=== PATIENT | female | born 1970 | race Caucasian/White ===

== ENCOUNTER → 2017-06-24 08:15 | Outpatient (POV) | payer BC, SELFPAY | PROVIDERS: Visit Provider Dermatology | DX: Z00.00 Encounter for general adult medical examination without abnormal findings (principal) ==

== ENCOUNTER → 2018-08-30 08:18 | Outpatient (POV) | payer OTHER, SELFPAY | PROVIDERS: Visit Provider Dermatology | DX: Z00.00 Encounter for general adult medical examination without abnormal findings (principal) ==

== ENCOUNTER → 2018-11-18 14:35 | Outpatient (CLI) | payer BC, SELFPAY ==
[2018-11-18 16:22] VITALS: BMI 26.9
== END ==
PROVIDERS: PCP Nurse Practitioner Family; Visit Provider Nurse Practitioner Family
DX: E11.40 Type 2 diabetes mellitus with diabetic neuropathy, unspecified (principal)
CPT/HCPCS: 97802

== ENCOUNTER 2019-02-10 08:00 | Outpatient (RCR) | payer BC, SELFPAY ==
--- NOTE | 2019-01-25 16:04 | HMH.OTOPEV ---
OT Inpatient Evaluation Rehab OT Outpatient Eval Start: 01/25/19 15:46 Freq: Status: Active Protocol: Document 01/25/19 15:46 RMARSHALL (Rec: 01/25/19 16:04 RMARSHALL [id number]) Electronically Signed By Madiha López OT 01/25/19 15:46 Outpatient Therapy Subjective History Subjective History Pt is a 48 year old female who reports to therapy for initial evaluation to bilateral thumbs. Pt has been having pain in both thumbs for ~2 months. Pt started a new exercise program at the beginning of November and began having pain immediately after. Pt explains her right thumb is the most painful (dominant side). She is also having clicking/catching at the right IP joint (possible trigger finger). Pt demonstrates with slight decreased AROM/strength at both thumbs. Pt will continue to be seen twice a week in order to address all deficits. 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 Type Ache,Throb,Sharp Symptoms Relieved By Nothing Symptoms Aggravated By Physical Activity,Lifting Prior Functional Limitations None Current Functional Limitations Reaching,Lifting,Housework, Dressing,Desk Work/Reading, Driving,Standing,Recreation Activity,Stairs Symptom Description Constant but Variable Level of pain today (0-10) 5 Pain scale - at its best (0-10) 7 Pain scale - at its worst (0-10) 3 Wrist/Hand Eval Thumb Range of Motion Left Thumb Metacarpophalangeal Flexion Active 70 degrees Range of Motion (degrees) Thumb Metacarpophalangeal Extension 0 degrees Active Range of Motion (degrees) Thumb Palmar Abduction (Carpometacarpal 70 degrees Flex) Active Range (degrees) Thumb Interphalangeal Flexion Active 65 degrees Range of Motion (degrees) Thumb Interphalangeal Extension Active 0 degrees Range of Motion (degrees) Right Thumb Metacarpophalangeal Flexion Active 60 degrees Range of Motion (degrees) Thumb Metacarpophalangeal Extension 0 degrees Active Range of Motion (degrees) Thumb Palmar Abduction (Carpometacarpal 35 degrees Flex) Active Range (degrees) Thumb Interphalangeal Flexion Active 55 degrees Ra
== END 2019-02-10 08:05 | disposition home or self-care (01) ==
LOC: OT 08:00
PROVIDERS: PCP Nurse Practitioner Family; Visit Provider Nurse Practitioner Family
DX: M79.644 Pain in right finger(s) (principal); M79.645 Pain in left finger(s)
CPT/HCPCS: 97033; 97035; 97140; 97166

== ENCOUNTER → 2020-10-03 07:47 | Outpatient (CLI) | payer BC, SELFPAY ==
[2020-10-03 08:17] LABS: Basophils # 0.1 K/mm3 (0-0.2); Basophils % 0.8 % (0.1-2.0); Eosinophils # 0.2 K/mm3 (0.0-0.4); Eosinophils % 3.1 % (0.1-12.0); Hematocrit 48.1 % (37.0-47.0); Lymphocytes # 1.8 K/mm3 (0.7-4.5); Lymphocytes % 25.3 % (10-50); Mean Corpuscular HGB Conc 33.4 g/dL (31.8-35.4); Mean Corpuscular Hemoglobin 28.9 pg (27.0-31.2); Mean Corpuscular Volume 86.5 fl (81-99); Mean Platelet Volume 8.4 fl (7.4-10.4); Monocytes # 0.5 K/mm3 (0.1-1.0); Monocytes % 7.2 % (1.7-9.3); Neutrophils # 4.6 K/mm3 (1.8-7.8); Neutrophils % 63.6 % (37.0-80.0); Platelet Count 222 K/mm3 (142-424); Red Blood Count 5.56 M/mm3 (4.20-5.40); Red Cell Distribution Width 13.3 % (11.5-17.5); White Blood Count 7.2 K/mm3 (4.8-10.8)
[2020-10-03 08:41] LABS: Alanine Aminotransferase 13 U/L (12-78); Albumin Level 4.8 g/dl (3.5-5.0); Albumin/Globulin Ratio 1.7 (1.1-1.8); Alkaline Phosphatase 75 U/L (38-126); Anion Gap 15.8 mEq/L (5-15); Aspartate Amino Transferase 17 U/L (14-36); Bilirubin,Total 1.1 mg/dl (0.2-1.3); Blood Urea Nitrogen 17 mg/dl (7-17); Calcium 9.7 mg/dl (8.4-10.2); Carbon Dioxide 23 mmol/L (22.0-30.0); Chloride 106 mmol/L (98-107); Chol/HDL Ratio 4.6 (1-3.5); Cholesterol 184 mg/dl (140-200); Estimated Glomerular Filt Rate 77 ml/min (>60); GFR (African American) 93 ML/MIN (>60); Globulin 2.8 g/dL (1.3-3.2); Glucose 202 mg/dl (74-100); HDL Cholesterol 40 mg/dl (40-60); Hemoglobin A1C 7.9 % (4.0-6.0); Potassium 4.8 mmoL/L (3.5-5.1); Sodium 140 mmol/L (136-145); Total Protein,Serum 7.6 g/dl (6.3-8.2); Triglycerides 134 mg/dl (30-150); VLDL Cholesterol 27 mg/dL (0-40)
[2020-10-03 08:51] LABS: Direct LDL Cholesterol 112.06 mg/dL (100-129)
[2020-10-03 09:29] LABS: Vitamin B12 324 pg/mL (239-931)
== END ==
PROVIDERS: Visit Provider Nurse Practitioner Family
DX: E11.40 Type 2 diabetes mellitus with diabetic neuropathy, unspecified (principal); E53.8 Deficiency of other specified B group vitamins
CPT/HCPCS: 36415; 80053; 80061; 82607; 83036; 85025

== ENCOUNTER 2021-05-17 09:06 | Emergency (ER) | payer BC, SELFPAY ==
[2021-05-17 09:10] VITALS: BP 141/91; PULSE 100; RESP 20; TEMP 36.8; O2SAT 98; BMI 26.6
--- NOTE | 2021-05-17 09:29 | HMH.EDUTC ---
[facility] [place] Disposition Clinical Impression: Sinusitis Qualifiers: Sinusitis location: unspecified location Chronicity: unspecified Qualified Code(s): J32.9 - Chronic sinusitis, unspecified Disposition: Home, Self-Care Condition on Discharge: Good Instructions: Sinusitis Additional Instructions: *Monitor Temp, Over the counter Motrin or Tylenol as directed/as needed Tylenol every 4 hours and Motrin every 6 hours (as long as your family doctor has told you that you can take it) for fever or pain. and straight to ER if unable to lower temp less than 101.0 after medication given *Warm salt water gargles may help to soothe the throat *Throat Lozenges *Warm fluids like tea with honey may help to soothe the throat *Sleep elevated *Humidifier/Vaporizer *Flonase 2 sprays in each nostril daily but be aware that it may take 2-3 days before you notice improvement *Bromfed may cause drowsiness. Know how it effects you (your child) before driving, caring for small child, or sending your child to school. Not other antihistamines/allergy medications while taking bromfed Take medication as prescribed Follow up IMMEDIATELY for new or worsening symptoms or no Noticeable improvement over the next 48-72 hours. 911 for difficulty breathing or swallowing Prescriptions: Amoxicillin/Potassium Clav [Augmentin 875-125 Tablet] 1 tab PO Q12H 7 Days #14 tab Transmission Status: Received by [id number] Brompheniramine/Pseudoephed/Dm [Bromfed Dm Cough Syrup] 5 - 10 ml PO Q46H PRN #250 ml PRN Reason: Cough Transmission Status: Received by [id number] Fluticasone Propionate [Flonase 50mcg nasal spray 16gm] 1 spr NS BID #1 each Transmission Status: Received by [id number] Referrals: Austin Cherry MD [Primary Care Provider] - Medical Decision Making - Nando Inquiry Pt receiving controlled substance: No Nando was queried for this patient: No Vital Signs: 05/17/21 09:10 05/17/21 09:38 Temperature 98.3 F 98.3 F Temperature Source Oral Pulse Rate 100 H Pulse Rate [Left Brachial] 100 H Respiratory Rate 20 20 Blood Pressure 141/91 H Blood Pressure [Left Arm] 141/91 H Blood Pressure Mean [Left Arm] 107 Blood Pressure Source [Left Arm] Automatic Cuff Blood Pressure Position [Left Arm] Sitting 02 Sat by Pulse Oximetry 98 Oxygen Delivery Method Room Air [facility] [place] HPI - General Stated complaint: no taste/smell, drainage, adb pain Time Seen by Provider: 05/17/21 09:29 Mode of Arrival: Ambulatory Source of Information: Patient Limitations: No Limitations Description of Symptoms (Recalled from Triage Doc. by RN): PATIENT C/O SINUS DRAINAGE AND COUGH SINCE WEDNESDAY HEENT Symptoms (Recalled from RN notes): Yes Resp Symptoms (Recalled from RN notes): Yes Skin Symptoms (Recalled from RN notes): No MS Symptoms (Recalled from RN notes): No Functional Status (Recalled from RN notes): WNL - History of Present Illness Provider Complaint: Patient states that she started with sinus congestion and pressure about a week ago States that it has continued to get worse States that she feels like it is drianing in the back of her throat and making her cough States that today she was still having pressure behind her eyes so she came in - Related Data Home Medications Medication Instructions Recorded Confirmed Dapagliflozin/Saxagliptin HCl 1 each PO DAILY 03/23/19 05/17/21 [Qtern 5 mg-5 mg Tablet] Previous Rx's Medication Instructions Recorded Amoxicillin/Potassium Clav 1 tab PO Q12H 7 Days #14 tab 05/17/21 [Augmentin 875-125 Tablet] Brompheniramine/Pseudoephed/Dm 5 - 10 ml PO Q46H PRN #250 ml 05/17/21 [Bromfed Dm Cough Syrup] Fluticasone Propionate [Flonase 1 spr NS BID #1 each 05/17/21 50mcg nasal spray 16gm] Allergies Allergy/AdvReac Type Severity Reaction Status Date / Time Sulfa (Sulfonamide Allergy Intermediate Hives Verified 01/07/21 13:01 Antibiotics) - Worker's Comp Is
[2021-05-17 09:38] VITALS: BP 141/91; PULSE 100; RESP 20; TEMP 36.8; O2SAT 98
== END 2021-05-17 09:50 | disposition home or self-care (01) ==
PROVIDERS: Emergency Provider Nurse Practitioner; PCP Internal Medicine Adolescent Medicine
DX: J32.9 Chronic sinusitis, unspecified (principal); E11.9 Type 2 diabetes mellitus without complications; Z88.2 Allergy status to sulfonamides
CPT/HCPCS: 99202; G0463

== ENCOUNTER → 2021-05-23 11:59 | Outpatient (CLI) | payer BC, SELFPAY | PROVIDERS: PCP Internal Medicine Adolescent Medicine; Visit Provider Nurse Practitioner | DX: U07.1 COVID-19 (principal) | CPT/HCPCS: C9803; U0003; U0005 ==

== ENCOUNTER → 2021-07-03 10:46 | Outpatient (CLI) | payer BC, SELFPAY ==
--- NOTE | 2021-07-03 10:55 | MM_ITS ---
PROCEDURE INFORMATION: Exam: MG Bilateral Screening 3D Mammography Exam date and time: 07/03/2021 10:55 AM Age: 50 years old Clinical indication: Encounter for screening mammogram for malignant neoplasm of breast TECHNIQUE: Imaging protocol: Screening tomosynthesis and 2D mammography including computer-aided detection (CAD) when performed. COMPARISON: MG DMSB DIG MAMM-SCREEN DILLON 01/22/2016 5:01 PM FINDINGS: MAMMOGRAPHY: Breast composition: The breast tissue is composed of scattered areas of fibroglandular density. Mass: 0.6 cm mass in the anterior third of the left lower outer quadrant Architectural distortion: None. Calcifications: No suspicious calcifications. Asymmetric density: None. Skin thickening: None. Axillary adenopathy: None. IMPRESSION: Patient to be recalled for left breast ultrasound for further evaluation of a probably benign left breast mass. ASSESSMENT: BI-RADS Category 0: Incomplete- Need Additional Imaging Evaluation and/or Prior Mammograms for Comparison
== END ==
PROVIDERS: PCP Internal Medicine Adolescent Medicine; Visit Provider Obstetrics & Gynecology
DX: Z12.31 Encounter for screening mammogram for malignant neoplasm of breast (principal)
CPT/HCPCS: 77063; 77067

== ENCOUNTER → 2021-07-15 10:18 | Outpatient (CLI) | payer BC, SELFPAY ==
--- NOTE | 2021-07-15 10:22 | US_ITS ---
PROCEDURE INFORMATION: Exam: US Left Breast, Complete Exam date and time: 07/15/2021 10:22 AM Age: 51 years old Clinical indication: Patient recalled for further evaluation of a left breast mass TECHNIQUE: Imaging protocol: Complete ultrasound of all four quadrants of the Left breast and the retroareolar regions, including ultrasound of the axilla when performed. COMPARISON: MG MM DIG SCREENING MAMM BI W/CAD 07/03/2021 10:56 AM FINDINGS: Breast: Sonographic images of the left breast including the retroareolar region, all 4 quadrants and the axilla do not demonstrate any cystic masses. Corresponding to the mass on mammography is a uniformly hypoechoic well-circumscribed ovoid solid mass in the lower outer quadrant 3 cm from the nipple measuring 0.6 x 0.3 x 0.6 cm in dimension. The finding is likely benign in etiology. No architectural distortion or acoustical shadowing. No skin thickening or axillary adenopathy. IMPRESSION: Probably benign left lower outer quadrant breast mass seen on mammography and sonography. A six-month follow-up diagnostic left mammogram and left breast ultrasound recommended to ensure stability over time unless otherwise clinically indicated. ASSESSMENT: BI-RADS Category 3: Probably benign
== END ==
LOC: RAD 10:18
PROVIDERS: PCP Internal Medicine Adolescent Medicine; Visit Provider Obstetrics & Gynecology
DX: R92.8 Other abnormal and inconclusive findings on diagnostic imaging of breast (principal)
CPT/HCPCS: 76641

== ENCOUNTER → 2021-07-19 09:41 | Outpatient (CLI) | payer BC, SELFPAY ==
[2021-07-19 10:03] LABS: Basophils # 0.1 K/mm3 (0-0.2); Basophils % 1.7 % (0.1-2.0); Eosinophils # 0.2 K/mm3 (0.0-0.4); Eosinophils % 2.7 % (0.1-12.0); Hematocrit 46.4 % (37.0-47.0); Hemoglobin 15.1 g/dL (12.2-16.2); Lymphocytes # 2.1 K/mm3 (0.7-4.5); Lymphocytes % 36.6 % (10-50); Mean Corpuscular HGB Conc 32.5 g/dL (31.8-35.4); Mean Corpuscular Hemoglobin 29.3 pg (27.0-31.2); Mean Platelet Volume 8.4 fl (7.4-10.4); Monocytes # 0.4 K/mm3 (0.1-1.0); Monocytes % 6.2 % (1.7-9.3); Neutrophils % 52.8 % (37.0-80.0); Platelet Count 268 K/mm3 (142-424); Red Blood Count 5.16 M/mm3 (4.20-5.40); Red Cell Distribution Width 13.3 % (11.5-17.5); White Blood Count 5.7 K/mm3 (4.8-10.8)
[2021-07-19 11:02] LABS: Alanine Aminotransferase 27 U/L (12-78); Albumin Level 4.5 g/dl (3.5-5.0); Albumin/Globulin Ratio 1.8 (1.1-1.8); Alkaline Phosphatase 70 U/L (38-126); Anion Gap 12.4 mEq/L (5-15); Aspartate Amino Transferase 31 U/L (14-36); Bilirubin,Total 1.6 mg/dl (0.2-1.3); Blood Urea Nitrogen 16 mg/dl (7-17); Calcium 9.7 mg/dl (8.4-10.2); Carbon Dioxide 28 mmol/L (22.0-30.0); Chloride 100 mmol/L (98-107); Chol/HDL Ratio 4.9 (1-3.5); Cholesterol 195 mg/dl (140-200); Estimated Glomerular Filt Rate 89 ml/min (>60); GFR (African American) 108 ML/MIN (>60); Globulin 2.5 g/dL (1.3-3.2); Glucose 248 mg/dl (74-100); HDL Cholesterol 40 mg/dl (40-60); Potassium 4.4 mmoL/L (3.5-5.1); Sodium 136 mmol/L (136-145); Triglycerides 157 mg/dl (30-150); VLDL Cholesterol 31 mg/dL (0-40)
[2021-07-19 11:13] LABS: Direct LDL Cholesterol 130.41 mg/dL (100-129)
[2021-07-19 11:50] LABS: Vitamin B12 420 pg/mL (239-931)
[2021-07-19 11:52] LABS: Hemoglobin A1C 9.5 % (4.0-6.0)
== END ==
LOC: LAB 09:42
PROVIDERS: PCP Nurse Practitioner Family; Visit Provider Nurse Practitioner Family
DX: E11.40 Type 2 diabetes mellitus with diabetic neuropathy, unspecified (principal); D50.9 Iron deficiency anemia, unspecified; E53.8 Deficiency of other specified B group vitamins; Z79.84 Long term (current) use of oral hypoglycemic drugs
CPT/HCPCS: 36415; 80053; 80061; 82607; 83036; 85025

== ENCOUNTER 2021-08-14 16:30 | Outpatient (RCR) | payer BC, SELFPAY ==
--- NOTE | 2021-07-23 16:58 | HMH.PTOPEV ---
PT Outpatient Evaluation Rehab PT Outpatient Evaluation Start: 07/23/21 16:05 Freq: Status: Active Protocol: Document 07/23/21 16:06 TY (Rec: 07/23/21 16:58 TY [id number]) Electronically Signed By Scot Yang PT 07/23/21 16:06 Outpatient Therapy Subjective History Subjective History This is the initial Physical Therapy evaluation for Virginia Henry. Pt is a 51 y/o female referred to PT for c/o R neck and shoulder pain. Pt reports pain since last summer w/ insidious onset but notes increased pain over last month . Pt states she notices pain w/ using RUE and lifting or pushing. Pt reports pain can vary in intensity and position moving from R upper shoulder blade to anterior shoulder. Chief Complaint Pain,Stiff Symptom Type Ache,Throb,Sharp,Dull,Stabbing Symptoms Relieved By Rest/Positioning,Ice,OTC Meds Symptoms Aggravated By Physical Activity,Lifting Prior Functional Limitations None Current Functional Limitations Lifting,Housework,Sleeping, Recreation Activity Symptom Description Constant but Variable Level of pain today (0-10) 4 Pain scale - at its best (0-10) 1 Pain scale - at its worst (0-10) 7 Cervical Eval Palpation Cervical Muscles L CT Junction,R Upper Trapezius Cervical/Thoracic Palpation Findings Tenderness,Trigger Point, Muscle Guarding Posture Head/C-Spine Posture Sitting Position C-Spine Flattened Head/C-Spine Posture Standing Position C-Spine Flattened Flexibility Deficits Upper Trapezius Muscle Length (R) Mild Tightness Levaetor Scapulae Muscle Length (R) Mild Tightness Scalene Group Muscle Length (R) Mild Tightness MMT Bilateral Deltoid (C5) 5 Normal Biceps Brachii Strength Grade 5 Normal Wrist Extension Strength Grade 4 Good Triceps Brachii Strength Grade 5 Normal Wrist Flexion Strength Grade 4 Good Special Test C-Spine Foraminal Compression (Spurling) Positive Left,Positive Right Test C-Spine Foraminal Distraction Test Negative C-Spine Compression Test Negative Left,Negative Right Shoulder/Elbow Eval Shoulder Objective Measurements Palpation Tenderness tenderness shoulder exam standard right tenderness over the bicipital tendon right shoulder exam standard Shoulder Palpation Findings Tenderness Posture Shoulder Posture Sitting Positio
== END 2021-08-14 16:35 | disposition home or self-care (01) ==
LOC: PT 16:30
PROVIDERS: PCP Internal Medicine Adolescent Medicine; Visit Provider Internal Medicine Adolescent Medicine
DX: M25.511 Pain in right shoulder (principal); G89.29 Other chronic pain
CPT/HCPCS: 20560; 97010; 97012; 97014; 97110; 97163; G0283

== ENCOUNTER → 2021-10-28 07:20 | Outpatient (CLI) | payer BC, SELFPAY ==
[2021-10-28 08:07] LABS: Creatinine,Urine Random 88 mg/dL (Not Estab.)
[2021-10-28 08:09] LABS: Microalbumin < 6.000 mg/L (0-16.7)
[2021-10-28 08:13] LABS: Hemoglobin A1C 7.1 % (4.0-6.0)
[2021-10-28 08:47] LABS: Alanine Aminotransferase 15 U/L (12-78); Albumin Level 4.3 g/dl (3.5-5.0); Albumin/Globulin Ratio 1.8 (1.1-1.8); Alkaline Phosphatase 51 U/L (38-126); Anion Gap 11.2 mEq/L (5-15); Aspartate Amino Transferase 20 U/L (14-36); Bilirubin,Total 1.2 mg/dl (0.2-1.3); Blood Urea Nitrogen 13 mg/dl (7-17); Calcium 9.4 mg/dl (8.4-10.2); Carbon Dioxide 28 mmol/L (22.0-30.0); Chloride 105 mmol/L (98-107); Chol/HDL Ratio 4.3 (1-3.5); Cholesterol 173 mg/dl (140-200); Estimated Glomerular Filt Rate 76 ml/min (>60); GFR (African American) 92 ML/MIN (>60); Globulin 2.4 g/dL (1.3-3.2); Glucose 155 mg/dl (74-100); HDL Cholesterol 40 mg/dl (40-60); Potassium 4.2 mmoL/L (3.5-5.1); Sodium 140 mmol/L (136-145); Total Protein,Serum 6.7 g/dl (6.3-8.2); Triglycerides 122 mg/dl (30-150); VLDL Cholesterol 24 mg/dL (0-40)
[2021-10-28 08:58] LABS: Direct LDL Cholesterol 95.22 mg/dL (100-129)
== END ==
PROVIDERS: Visit Provider Nurse Practitioner Family
DX: E11.40 Type 2 diabetes mellitus with diabetic neuropathy, unspecified (principal); E78.5 Hyperlipidemia, unspecified; R80.9 Proteinuria, unspecified; Z79.84 Long term (current) use of oral hypoglycemic drugs
CPT/HCPCS: 36415; 80053; 80061; 82043; 82570; 83036

== ENCOUNTER → 2022-01-13 12:58 | Outpatient (CLI) | payer BC, SELFPAY ==
--- NOTE | 2022-01-13 13:06 | MM_ITS ---
PROCEDURE INFORMATION: Exam: US Left Breast, Complete MG Left Diagnostic Breast Tomosynthesis Exam date and time: 01/13/2022 1:40 PM Age: 51 years old Clinical indication: Short-term radiographic followup; Left breast; mass TECHNIQUE: Imaging protocol: Complete ultrasound of all four quadrants of the Left breast and the retroareolar regions, including ultrasound of the axilla when performed. Left Diagnostic tomosynthesis and 2D mammography including computer-aided detection (CAD) when performed. Unilateral or bilateral exam. COMPARISON: US BREAST LT COMPLETE 07/15/2021 10:42 AM FINDINGS: MAMMOGRAPHY: The breast tissue is composed of scattered areas of fibroglandular density. There is no stellate mass, architectural distortion or suspicious microcalcifications to suggest malignancy. Stable 0.7 cm mass in the anterior third the left lower outer quadrant No skin thickening or axillary adenopathy. ULTRASOUND: Sonographic images of the left breast including the retroareolar region, all 4 quadrants and the axilla demonstrates a stable hypoechoic ovoid mass in the 4 o'clock axis 3 cm from the nipple measuring 0.7 x 0.3 x 0.8 cm in dimension cm in dimension. This is stable compared to prior sonogram dated 07/15/2021. Cursors were placed over normal fibroglandular structures in the 2 o'clock axis. No architectural distortion or acoustical shadowing. No skin thickening or axillary adenopathy. IMPRESSION: Stable probably benign left anterior 4 o'clock axis mass compared to prior studies dated 07/03 and 07/15/2021. A six-month follow-up diagnostic bilateral mammogram and targeted left breast ultrasound are recommended for continued close surveillance of the left-sided mass as well as part of an annual screening schedule ASSESSMENT: BI-RADS Category 3: Probably benign
== END ==
LOC: RAD 12:58
PROVIDERS: PCP Nurse Practitioner Family; Visit Provider Obstetrics & Gynecology
DX: R92.8 Other abnormal and inconclusive findings on diagnostic imaging of breast (principal)
CPT/HCPCS: 76641; 77061; 77065; G0279

== ENCOUNTER → 2022-03-11 08:13 | Outpatient (CLI) | payer BC, SELFPAY ==
--- NOTE | 2022-03-11 08:21 | XR_ITS ---
FINAL REPORT CLINICAL HISTORY: Rt shoulder pain x yrs, worsened recently. NKT FINDINGS: Right shoulder Three views were obtained. There is no acute fracture or dislocation. There are mild hypertrophic changes of the AC joint. No soft tissue abnormality is identified. IMPRESSION: Mild hypertrophic changes of the AC joint. Reviewed, Interpreted and Dictated by Titi Honeycutt MD Transcribed by Chika Mccain Authenticated and [facility]
== END ==
LOC: RAD 08:15
PROVIDERS: PCP Internal Medicine Adolescent Medicine; Visit Provider Internal Medicine Adolescent Medicine
DX: M25.511 Pain in right shoulder (principal)
CPT/HCPCS: 73030

== ENCOUNTER 2022-03-13 11:00 | Outpatient (RCR) | payer BC, SELFPAY ==
--- NOTE | 2022-02-11 10:59 | HMH.PTOPEV ---
PT Outpatient Evaluation Rehab PT Outpatient Evaluation Start: 02/11/22 10:43 Freq: Status: Active Protocol: Document 02/11/22 10:43 RODNEY (Rec: 02/11/22 10:58 RODNEY [id number]) E-signed By Iglesia Estrada, PT Outpatient Therapy Subjective History Subjective History Pt reports h/o chronic right shoulder pain with most recent exacerbation occurring ~ weeks ago. Pt reports executing overhead tricep extensions while working out and 'felt a pop' in the right shoulder. Pt reports intermittent right shoulder jt line pain since incident, jillian . with any overhead reaching activity. Chief Complaint Pain,Stiff,Paresthesia Symptom Type Ache,Dull,Stabbing Symptoms Relieved By Rest/Positioning,Ice, Prescription Meds Symptoms Aggravated By Physical Activity,Lifting Prior Functional Limitations None Current Functional Limitations Reaching,Lifting,Housework Symptom Description Constant but Variable Level of pain today (0-10) 2 Pain scale - at its best (0-10) 1 Pain scale - at its worst (0-10) 5 Shoulder/Elbow Eval Shoulder Objective Measurements Palpation Tenderness tenderness shoulder exam standard right tenderness over the bicipital tendon right shoulder exam standard Shoulder Palpation Findings Tenderness,Trigger Point Shoulder Palpation Overall Comment 3/4 UT mm, deltoid mm, jt line Posture Shoulder Posture Sitting Position Neutral Shoulder Posture Standing Position Neutral Flexibilty Deficits Upper Trapezius Muscle Length (R) Moderate Tightness Shoulder ROM Right Shoulder Abduction Active Range of 0-100 Motion (degrees) Shoulder Flexion Active Range of Motion 0-130 (degrees) Query Text: Shoulder External Rotation Passive Range 0-78 of Motion (degrees) Shoulder MMT Lower Trapezius Strength Grade 3+ Fair+ Middle Trapezius Strength Grade 4- Good- Rhomboids Strength Grade 4- Good- Shoulder Abduction Strength Grade 4- Good- Shoulder Flexion Strength Grade 4- Good- Infraspinatus/Teres Minor Strength Grade 4- Good- Shoulder External Rotation Strength 4 Good Grade Shoulder Internal Rotation Strength 5 Normal Grade Subscapularis Muscle Grade 3+ Fair+ Supraspinatus Strength Grade 4- Good- Shoulder Special Tests Shoulder Drop Arm Test Negative Right Shoulder Empty Can (Supraspinatus) T
== END 2022-03-13 11:05 | disposition home or self-care (01) ==
LOC: PT 11:00
PROVIDERS: PCP Nurse Practitioner Family; Visit Provider Internal Medicine Adolescent Medicine
DX: M12.811 Other specific arthropathies, not elsewhere classified, right shoulder (principal)
CPT/HCPCS: 20560; 20561; 97014; 97016; 97035; 97110; 97140; 97163; G0283

== ENCOUNTER 2022-04-14 09:24 | Emergency (ER) | payer BC, SELFPAY ==
[2022-04-14 10:58] LABS: Apearance,Urine Cloudy (Clear); Color,Urine Red (Yellow)
[2022-04-14 10:59] LABS: Bilirubin,Urine Negative (Negative); Blood, Urine Trace (Negative); Glucose,Urine (UA) 1000 (Negative); Ketones,Urine TRACE (Negative); Protein,Urine 1+ (Negative); Specific Gravity, Urine 1.025 (1.005-1.030); Urobilinogen,Urine 2 EU/dl (0.2)
[2022-04-14 11:00] VITALS: BP 132/86; PULSE 76; RESP 18; TEMP 36.6; O2SAT 98; BMI 25.7
[2022-04-14 11:00] LABS: UTC Leukocyte Esterase,Urine Negative (Negative); UTC Nitrate,Urine Positive (Negative)
--- NOTE | 2022-04-14 11:01 | EXP.UTC ---
Discharge Plan Disposition Patient Disposition: Home, Self-Care Condition: Good Prescriptions Prescriptions: New cefdinir 300 mg capsule 300 mg PO BID 7 Days Qty: 14 0RF phenazopyridine [Pyridium] 200 mg tablet 200 mg PO Q8H 2 Days Qty: 6 0RF No Action dapagliflozin-saxagliptin 1 EACH tablet 1 each PO DAILY xiwufclywcnprcb-bqcumkwdi-GM 118 ML syrup 5 - 10 ml PO Q46H PRN (Reason: Cough) Qty: 250 0RF fluticasone propionate 120 SPR/BOT bottle 1 spr NS BID Qty: 1 0RF Rx Instructions: one spray in each nostril daily amoxicillin-pot clavulanate 1 EACH tablet 1 tab PO Q12H 7 Days Qty: 14 0RF rosuvastatin 5 mg tablet 5 mg PO DAILY Label Comments: TAKE 1 TABLET BY MOUTH ONCE DAILY Referrals Follow up/Referrals: Austin Cherry MD [Primary Care Provider] - See instructions Activity Restrictions/Add. Instructions Additional Instructions/Restrictions: *Increase fluids. Water not Soda or Tea *Start antibiotic immediately and be sure to take as ordered for the FULL length of time although you should start to see improvement over the next 48 hours *Pyridium as needed Remember this medication will turn your urine . This is normal but it will stain what ever it gets on *You should not use Pyridium for more than 48 hours. If so , follow up with your primary physician to review urine culture and ensure that antibiotic is adequate for infection *Be SURE to follow up anytime for new or worsening symptoms with your family doctor. AND in 48 hours for urine culture results with your family doctor, if you do not have a doctor then you may call back to the [facility] for urine culture results and further treatment. We do recommend that you choose and establish care with a Primary Care Physician. ?AND follow up with them ?in 10-14 days to repeat UA to ensure infection is resolved and blood no longer present *Be sure to let your PCP know that we sent urine cultures from the [facility] so they can follow up to ensure that you area the on the correct antibiotic Call your doctor office and make appointment for 48 hours (2 days from today) ?to follow up and get the results of your urine culture and further treatment Clinical Impressions Clinical Impression: Urinary tract infection Qualifiers: Hematuria presence: with hematuria Instructions Patient Instructions: DI for Urinary Tract Infection (UTI) Discharge ED Provider: Marquita Mg [facility] [place] HPI General Stated complaint: Burning, pain and itching when urination Time Seen by Provider: 04/14/22 11:32 History of Present Illness Provider Complaint: Patient states that she has been having burning, itching and hurts when she urinates for several days States that also she feels like she may have scratched herself while she was wiping Related Data Home Medications Medication Instructions Recorded Confirmed dapagliflozin 5 mg-saxagliptin 5 1 each PO DAILY Diabetes 03/23/19 04/14/22 mg tablet rosuvastatin 5 mg tablet 5 mg PO DAILY Cholesterol 04/14/22 04/14/22 Previous Rx's Medication Instructions Recorded amoxicillin 875 mg-potassium 1 tab PO Q12H 7 days #14 tabs 05/17/21 clavulanate 125 mg tablet coumsogdtbcedcx-pomdsmzzxzuvtqq-BS 5 - 10 ml PO Q46H PRN Cough #250 mL 05/17/21 2 mg-30 mg-10 mg/5 mL oral syrup fluticasone propionate 50 1 spr NS BID #1 ea 05/17/21 mcg/actuation nasal spray,suspension cefdinir 300 mg capsule 300 mg PO BID 7 days #14 caps 04/14/22 phenazopyridine 200 mg tablet 200 mg PO Q8H pain 2 days #6 tabs 04/14/22 (Pyridium) Allergies Allergy/AdvReac Type Severity Reaction Status Date / Time Sulfa (Sulfonamide Allergy Intermediate Hives Verified 04/14/22 11:02 Antibiotics) [facility] Social History Smoking Status: Never smoker alcohol intake: never substance use type: denies use current occupational status: other Travel in the last 8 weeks: None
[2022-04-14 11:36] VITALS: BP 132/86; PULSE 76; RESP 18; TEMP 36.6
== END 2022-04-14 11:39 | disposition home or self-care (01) ==
PROVIDERS: Emergency Provider Nurse Practitioner; PCP Internal Medicine Adolescent Medicine
DX: N39.0 Urinary tract infection, site not specified (principal)
CPT/HCPCS: 81003; 87086; 87088; 87186; 99212; G0463

== ENCOUNTER 2022-06-10 15:40 | Emergency (ER) | payer BC, SELFPAY ==
--- NOTE | 2022-06-10 16:05 | EXP.UTC ---
Discharge Plan Disposition Patient Disposition: Home, Self-Care Condition: Good Prescriptions Prescriptions: New benzonatate [benzonatate] 100 mg capsule 100 mg PO TIDP PRN (Reason: Cough) Qty: 30 0RF oseltamivir [Tamiflu] 75 mg capsule 75 mg PO BID Qty: 10 0RF methylprednisolone 4 mg Tablets,Dose Pack 4 mg PO DIRECTED Qty: 21 0RF No Action dapagliflozin-saxagliptin 1 EACH tablet 1 each PO DAILY mimyokqczxphbmm-cnhvbzuoc-MX 118 ML syrup 5 - 10 ml PO Q46H PRN (Reason: Cough) Qty: 250 0RF fluticasone propionate 120 SPR/BOT bottle 1 spr NS BID Qty: 1 0RF Rx Instructions: one spray in each nostril daily amoxicillin-pot clavulanate 1 EACH tablet 1 tab PO Q12H 7 Days Qty: 14 0RF rosuvastatin 5 mg tablet 5 mg PO DAILY Label Comments: TAKE 1 TABLET BY MOUTH ONCE DAILY cefdinir 300 mg capsule 300 mg PO BID 7 Days Qty: 14 0RF phenazopyridine [Pyridium] 200 mg tablet 200 mg PO Q8H 2 Days Qty: 6 0RF Referrals Follow up/Referrals: Austin Cherry MD [Primary Care Provider] - See instructions Activity Restrictions/Add. Instructions Additional Instructions/Restrictions: Drink plenty of fluids. Take tylenol or ibuprofen for pain or fever. Take the medications as directed. Follow up with your regular doctor. GO TO THE ER FOR ANY WORSENING SYMPTOMS Clinical Impressions Clinical Impression: Acute viral syndrome Stand Alone Forms Stand Alone Forms: Work/School Release Instructions Patient Instructions: DI for Influenza -- Adult, Oseltamivir Discharge ED Provider: Aldo Betancur [facility] General Stated complaint: exposed to flu , weak, nausea Time Seen by Provider: 06/10/22 16:05 History of Present Illness Provider Complaint: She states that for the past 2 days she has had sore throat, chills, body aches and low grade fever. Related Data Home Medications Medication Instructions Recorded Confirmed dapagliflozin 5 mg-saxagliptin 5 1 each PO DAILY Diabetes 03/23/19 04/14/22 mg tablet rosuvastatin 5 mg tablet 5 mg PO DAILY Cholesterol 04/14/22 04/14/22 Previous Rx's Medication Instructions Recorded amoxicillin 875 mg-potassium 1 tab PO Q12H 7 days #14 tabs 05/17/21 clavulanate 125 mg tablet qdqtgduijguxgzq-hyeccdfbkqexpcf-MH 5 - 10 ml PO Q46H PRN Cough #250 mL 05/17/21 2 mg-30 mg-10 mg/5 mL oral syrup fluticasone propionate 50 1 spr NS BID #1 ea 05/17/21 mcg/actuation nasal spray,suspension cefdinir 300 mg capsule 300 mg PO BID 7 days #14 caps 04/14/22 phenazopyridine 200 mg tablet 200 mg PO Q8H pain 2 days #6 tabs 04/14/22 (Pyridium) benzonatate 100 mg capsule 100 mg PO TIDP PRN Cough #30 caps 06/10/22 methylprednisolone 4 mg tablets in 4 mg PO DIRECTED #21 tabs 06/10/22 a dose pack oseltamivir 75 mg capsule (Tamiflu) 75 mg PO BID #10 caps 06/10/22 Allergies Allergy/AdvReac Type Severity Reaction Status Date / Time Sulfa (Sulfonamide Allergy Intermediate Hives Verified 06/10/22 16:10 Antibiotics) [facility] Disclaimer: The information contained in this section may have been updated after the patient was seen, as this information can be updated by other users. Social History Smoking Status: Never smoker alcohol intake: never substance use type: denies use current occupational status: other Travel in the last 8 weeks: None ROS Obtained: Yes All systems reviewed & no additional complaints except as documented Constitutional Constitutional: Reports chills and Reports fever(s) Eyes Eyes: Denies eye discharge ENT Ears, Nose, Mouth, and Throat: Reports as per HPI Cardiovascular Cardiovascular: Denies chest pain Respiratory Respiratory: Denies chest congestion and Reports cough Gastrointestinal Gastrointestingal: Reports nausea; Denies abdominal pain, constipation, cramping, diarrhea or vomiting Musculoskeletal Musculoskeleta
[2022-06-10 16:07] VITALS: BP 133/80; PULSE 103; RESP 18; TEMP 36.9; O2SAT 98; BMI 25.7
[2022-06-10 16:17] LABS: Adenovirus,PCR Not Detected (NotDetected); Bordetella Pertussis Not Detected (NotDetected); Chlamydophila Pneumoniae, PCR Not Detected (NotDetected); Coronavirus 229E Not Detected (NotDetected); Coronavirus NL63 Not Detected (NotDetected); Coronavirus OC43 Not Detected (NotDetected); Coronovirus HKU1,PCR Not Detected (NotDetected); Human Metapneumovirus Not Detected (NotDetected); Influenza A, PCR Not Detected (NotDetected); Influenza AH1, 2009 Not Detected (NotDetected); Influenza AH1, PCR Not Detected (NotDetected); Influenza AH3,PCR Not Detected (NotDetected); Influenza B, PCR Not Detected (NotDetected); Mycoplasma Pneumoniae, PCR Not Detected (NotDetected); Parainfluenza 1, PCR Not Detected (NotDetected); Parainfluenza 2, PCR Not Detected (NotDetected); Parainfluenza 3, PCR Not Detected (NotDetected); Parainfluenza 4, PCR Not Detected (NotDetected); Respiratory Syncytial Virus Not Detected (NotDetected); Rhinovirus/Enterovirus Not Detected (NotDetected)
[2022-06-10 16:47] VITALS: BP 133/80; PULSE 103; RESP 18; TEMP 36.9
[2022-06-11 02:49] LABS: Coronavirus 19, PCR Detected (NotDetected)
== END 2022-06-10 16:50 | disposition home or self-care (01) ==
PROVIDERS: Emergency Provider Nurse Practitioner Family; PCP Internal Medicine Adolescent Medicine
DX: U07.1 COVID-19 (principal)
CPT/HCPCS: 87581; 87632; 87798; 99212; C9803; G0463; U0003; U0005

== ENCOUNTER → 2022-07-17 13:50 | Outpatient (CLI) | payer BC, SELFPAY ==
--- NOTE | 2022-07-17 13:53 | MM_ITS ---
PROCEDURE INFORMATION: Exam: US Left Breast, Complete MG Bilateral Diagnostic Breast Tomosynthesis Exam date and time: 07/17/2022 1:51 PM Age: 52 years old Clinical indication: Six-month follow-up for probably benign left anterior 4 o'clock axis mass from 07/03, 07/15, and 01/13/2022 as well as left screening. No reported family history of breast cancer. TECHNIQUE: Imaging protocol: Complete ultrasound of all four quadrants of the Left breast and the retroareolar regions, including ultrasound of the axilla when performed. Bilateral Diagnostic tomosynthesis and 2D mammography including computer-aided detection (CAD) when performed. Unilateral or bilateral exam. COMPARISON: 1. MG MM DIG MAMM DX UNILAT LT CAD 01/13/2022 1:05 PM 2. MG MM DIG SCREENING MAMM BI W/CAD 07/03/2021 10:56 AM 3. MG DMSB DIG MAMM-SCREEN DILLON 01/22/2016 5:01 PM 4. US BREAST LT COMPLETE 01/13/2022 1:40 PM US BREAST LT COMPLETE 07/15/2021 10:42 AM FINDINGS: MAMMOGRAPHY: Breast composition: There are scattered areas of fibroglandular density. Mass: Similar/less prominent 0.6 cm mass/asymmetry best seen in the MLO projection, along the nipple line, anterior 3rd, MLO frame 19. Architectural distortion: None. Calcifications: No suspicious calcifications. Asymmetric density: None. Skin thickening: None. Axillary adenopathy: None. ULTRASOUND: Left sonography, all 4 quadrants, retroareolar and axilla demonstrate at 4 o'clock 3 cm from the nipple an oval hypoechoic avascular, probably solid, mass measuring 0.7 x 0.7 x 0.3 cm which measured 0.6 x 0.4 x 0.6 cm on 07/15/2021. Sonographically unremarkable left axillary lymph node. IMPRESSION: No significant change in probably benign mammographic and sonographic sonographic mass on the left at 4 o'clock since 07/15/2021, advise continued six-month follow-up sonography, unless otherwise clinically indicated. ASSESSMENT: BI-RADS Category 3: Probably benign
== END ==
LOC: RAD 13:50
PROVIDERS: PCP Internal Medicine Adolescent Medicine; Visit Provider Obstetrics & Gynecology
DX: R92.8 Other abnormal and inconclusive findings on diagnostic imaging of breast (principal)
CPT/HCPCS: 76641; 77062; 77066; G0279

== ENCOUNTER → 2022-08-19 07:51 | Outpatient (CLI) | payer BC, SELFPAY ==
[2022-08-19 08:31] LABS: Basophils # 0.1 K/mm3 (0-0.2); Basophils % 1.2 % (0.1-2.0); Eosinophils # 0.2 K/mm3 (0.0-0.4); Eosinophils % 2.3 % (0.1-12.0); Hematocrit 47.2 % (37.0-47.0); Hemoglobin 15.1 g/dL (12.2-16.2); Lymphocytes # 1.9 K/mm3 (0.7-4.5); Lymphocytes % 25.9 % (10-50); Mean Corpuscular Hemoglobin 28.5 pg (27.0-31.2); Mean Corpuscular Volume 89.2 fl (81-99); Mean Platelet Volume 8.2 fl (7.4-10.4); Monocytes # 0.5 K/mm3 (0.1-1.0); Monocytes % 6.7 % (1.7-9.3); Neutrophils # 4.7 K/mm3 (1.8-7.8); Neutrophils % 63.9 % (37.0-80.0); Platelet Count 254 K/mm3 (142-424); Red Cell Distribution Width 13.2 % (11.5-17.5); White Blood Count 7.3 K/mm3 (4.8-10.8)
[2022-08-19 09:05] LABS: Alanine Aminotransferase 17 U/L (12-78); Albumin Level 4.6 g/dl (3.5-5.0); Albumin/Globulin Ratio 1.7 (1.1-1.8); Alkaline Phosphatase 77 U/L (38-126); Anion Gap 11.4 mEq/L (5-15); Aspartate Amino Transferase 21 U/L (14-36); Bilirubin,Total 1.1 mg/dl (0.2-1.3); Blood Urea Nitrogen 17 mg/dl (7-17); Calcium 9.3 mg/dl (8.4-10.2); Carbon Dioxide 27 mmol/L (22.0-30.0); Chloride 103 mmol/L (98-107); Chol/HDL Ratio 4.2 (1-3.5); Cholesterol 172 mg/dl (140-200); Estimated Glomerular Filt Rate 66 ml/min (>60); GFR (African American) 80 ML/MIN (>60); Globulin 2.7 g/dL (1.3-3.2); Glucose 180 mg/dl (74-100); HDL Cholesterol 41 mg/dl (40-60); Potassium 4.4 mmoL/L (3.5-5.1); Sodium 137 mmol/L (136-145); Total Protein,Serum 7.3 g/dl (6.3-8.2); Triglycerides 119 mg/dl (30-150); VLDL Cholesterol 24 mg/dL (0-40)
[2022-08-19 09:10] LABS: Creatinine,Urine Random 64 mg/dL (Not Estab.)
[2022-08-19 09:16] LABS: Direct LDL Cholesterol 102.01 mg/dL (100-129)
[2022-08-19 09:36] LABS: Microalbumin < 6.000 mg/L (0-16.7)
[2022-08-19 09:54] LABS: Vitamin B12 425 pg/mL (239-931)
[2022-08-19 10:50] LABS: Hemoglobin A1C 8.4 % (4.0-6.0)
== END ==
LOC: LAB 07:52
PROVIDERS: PCP Nurse Practitioner Family; Visit Provider Nurse Practitioner Family
DX: E11.40 Type 2 diabetes mellitus with diabetic neuropathy, unspecified (principal); E78.5 Hyperlipidemia, unspecified; D50.9 Iron deficiency anemia, unspecified; E53.8 Deficiency of other specified B group vitamins
CPT/HCPCS: 36415; 80053; 80061; 82043; 82570; 82607; 83036; 85025

== ENCOUNTER → 2022-09-29 16:48 | Outpatient (CLI) | payer BC, SELFPAY ==
--- NOTE | 2022-09-29 16:54 | XR_ITS ---
PROCEDURE INFORMATION: Exam: XR Bilateral Sacroiliac Joints Exam date and time: 09/29/2022 4:56 PM Age: 52 years old Clinical indication: Other: Sacroiliac inflammation since June 2022, no injury TECHNIQUE: Imaging protocol: XR bilateral XR of the sacroiliac joints. Views: 3 or more views. COMPARISON: No relevant prior studies available. FINDINGS: Bones/joints: There is mild sclerosis along the sacroiliac joints likely sequela of prior sacroiliitis. No visible fracture or dislocation. Soft tissues: Normal. IMPRESSION: 1. There is mild sclerosis along the sacroiliac joints likely sequela of prior sacroiliitis. 2. No visible fracture or dislocation.
== END ==
LOC: RAD 16:49
PROVIDERS: PCP Nurse Practitioner Family; Visit Provider Internal Medicine Adolescent Medicine
DX: M46.1 Sacroiliitis, not elsewhere classified (principal)
CPT/HCPCS: 72202

== ENCOUNTER → 2022-11-26 06:57 | Outpatient (CLI) | payer BC, SELFPAY ==
[2022-11-26 08:12] LABS: Microalbumin/Creatinine Ratio 6.8
[2022-11-26 08:16] LABS: Basophils % 0.6 % (0.1-2.0); Eosinophils # 0.2 K/mm3 (0.0-0.4); Eosinophils % 2.2 % (0.1-12.0); Hematocrit 47.4 % (37.0-47.0); Hemoglobin 15.6 g/dL (12.2-16.2); Mean Corpuscular HGB Conc 32.8 g/dL (31.8-35.4); Mean Corpuscular Hemoglobin 28.7 pg (27.0-31.2); Mean Corpuscular Volume 87.5 fl (81-99); Monocytes # 0.6 K/mm3 (0.1-1.0); Monocytes % 7.9 % (1.7-9.3); Neutrophils # 4.4 K/mm3 (1.8-7.8); Neutrophils % 61.3 % (37.0-80.0); Platelet Count 240 K/mm3 (142-424); Red Blood Count 5.41 M/mm3 (4.20-5.40); Red Cell Distribution Width 12.8 % (11.5-17.5); White Blood Count 7.1 K/mm3 (4.8-10.8)
[2022-11-26 08:20] LABS: Alanine Aminotransferase 18 U/L (12-78); Albumin Level 4.6 g/dl (3.5-5.0); Albumin/Globulin Ratio 1.8 (1.1-1.8); Alkaline Phosphatase 60 U/L (38-126); Anion Gap 14.1 mEq/L (5-15); Aspartate Amino Transferase 22 U/L (14-36); Bilirubin,Total 1.9 mg/dl (0.2-1.3); Blood Urea Nitrogen 16 mg/dl (7-17); Carbon Dioxide 25 mmol/L (22.0-30.0); Chloride 104 mmol/L (98-107); Chol/HDL Ratio 2.4 (1-3.5); Cholesterol 97 mg/dl (140-200); Estimated Glomerular Filt Rate 76 ml/min (>60); GFR (African American) 92 ML/MIN (>60); Globulin 2.6 g/dL (1.3-3.2); Glucose 142 mg/dl (74-100); HDL Cholesterol 41 mg/dl (40-60); Potassium 4.1 mmoL/L (3.5-5.1); Sodium 139 mmol/L (136-145); Total Protein,Serum 7.2 g/dl (6.3-8.2); Triglycerides 105 mg/dl (30-150); VLDL Cholesterol 21 mg/dL (0-40)
[2022-11-26 08:31] LABS: Direct LDL Cholesterol 41.66 mg/dL (100-129)
[2022-11-26 08:38] LABS: Creatinine,Urine Random 129 mg/dL (Not Estab.); Hemoglobin A1C 6.6 % (4.0-6.0)
[2022-11-26 09:11] LABS: Vitamin B12 299 pg/mL (239-931)
[2022-11-27 14:22] LABS: Estradiol 91.4 pg/mL (.); FSH 4.2 mIU/mL (.); LH 10.7 mIU/mL (.)
== END ==
LOC: LAB 06:59
PROVIDERS: Internal Medicine Adolescent Medicine; PCP Nurse Practitioner Family; Visit Provider Nurse Practitioner Family
DX: E11.40 Type 2 diabetes mellitus with diabetic neuropathy, unspecified (principal); N92.6 Irregular menstruation, unspecified; D50.9 Iron deficiency anemia, unspecified; E53.8 Deficiency of other specified B group vitamins; Z79.84 Long term (current) use of oral hypoglycemic drugs
CPT/HCPCS: 36415; 80053; 80061; 82043; 82570; 82607; 82670; 83001; 83002; 83036; 85025

== ENCOUNTER → 2023-01-14 13:56 | Outpatient (CLI) | payer BC, SELFPAY ==
--- NOTE | 2023-01-14 14:00 | MM_ITS ---
PROCEDURE INFORMATION: Exam: US Left Breast, Complete MG Left Diagnostic Breast Tomosynthesis Exam date and time: 01/14/2023 1:52 PM Age: 52 years old Clinical indication: Short-term radiographic followup; Left breast; Abnormal findings on imaging; Right; Additional info: Abnormal mammogram, 6 mos fu TECHNIQUE: Imaging protocol: Complete ultrasound of all four quadrants of the left breast and the retroareolar regions, including ultrasound of the axilla when performed. Left Diagnostic tomosynthesis and 2D mammography including computer-aided detection (CAD) when performed. Unilateral or bilateral exam. COMPARISON: 1. MG MM DIG MAMM BI DX W/CAD 07/17/2022 1:51 PM 2. MG MM DIG MAMM DX UNILAT LT CAD 01/13/2022 1:05 PM 3. MG MM DIG SCREENING MAMM BI W/CAD 07/03/2021 10:56 AM 4. MG DMSB DIG MAMM-SCREEN DILLON 01/22/2016 5:01 PM FINDINGS: MAMMOGRAPHY: There are scattered areas of fibroglandular density. Stable benign-appearing subcentimeter nodules are present in the anterior lower left breast. No new mass, architectural distortion, or suspicious calcifications have developed to suggest malignancy. No axillary adenopathy. ULTRASOUND: Hypoechoic horizontal circumscribed 0.8 x 0.3 by 0.7 cm mass along the 4 o'clock axis 3 cm from the nipple measures 0.8 x 0.3 x 0.7 cm on 01/13/2022 Minimally complicated cystic structures measure 0.5 cm along the 12 o'clock axis left breast 5 cm from the nipple and 0.6 cm along the 12 o'clock axis 3 cm from the nipple IMPRESSION: Continued sonographic surveillance is recommended to assure stability of a 0.8 cm left 4 o'clock probably benign mass and several complicated cystic structures along the 12 o'clock left breast with targeted ultrasound in 6 months, at which time the patient will be due for bilateral annual screening mammogram ASSESSMENT: BI-RADS category 3: Probably benign
== END ==
LOC: RAD 13:56
PROVIDERS: PCP Nurse Practitioner Family; Visit Provider Obstetrics & Gynecology
DX: R92.8 Other abnormal and inconclusive findings on diagnostic imaging of breast (principal); N63.20 Unspecified lump in the left breast, unspecified quadrant
CPT/HCPCS: 76641; 77061; 77065; G0279

== ENCOUNTER → 2023-03-05 07:30 | Outpatient (CLI) | payer BC, SELFPAY ==
[2023-03-05 07:50] LABS: Basophils # 0.1 K/mm3 (0-0.2); Eosinophils # 0.1 K/mm3 (0.0-0.4); Eosinophils % 1.4 % (0.1-12.0); Hematocrit 46.4 % (37.0-47.0); Hemoglobin 14.7 g/dL (12.2-16.2); Lymphocytes % 37.3 % (10-50); Mean Corpuscular HGB Conc 31.8 g/dL (31.8-35.4); Mean Corpuscular Hemoglobin 28.7 pg (27.0-31.2); Mean Corpuscular Volume 90.3 fl (81-99); Mean Platelet Volume 8.9 fl (7.4-10.4); Monocytes # 0.4 K/mm3 (0.1-1.0); Monocytes % 7.8 % (1.7-9.3); Neutrophils # 2.9 K/mm3 (1.8-7.8); Neutrophils % 52.4 % (37.0-80.0); Platelet Count 240 K/mm3 (142-424); Red Blood Count 5.13 M/mm3 (4.20-5.40); Red Cell Distribution Width 13.2 % (11.5-17.5); White Blood Count 5.5 K/mm3 (4.8-10.8)
[2023-03-05 08:33] LABS: Hemoglobin A1C 5.8 % (4.0-6.0)
[2023-03-05 08:49] LABS: Alanine Aminotransferase 15 U/L (12-78); Albumin Level 4.3 g/dl (3.5-5.0); Albumin/Globulin Ratio 1.9 (1.1-1.8); Alkaline Phosphatase 57 U/L (38-126); Anion Gap 12.9 mEq/L (5-15); Aspartate Amino Transferase 20 U/L (14-36); Blood Urea Nitrogen 11 mg/dl (7-17); Calcium 8.9 mg/dl (8.4-10.2); Carbon Dioxide 26 mmol/L (22.0-30.0); Chloride 105 mmol/L (98-107); Estimated Glomerular Filt Rate 76 ml/min (>60); GFR (African American) 92 ML/MIN (>60); Globulin 2.3 g/dL (1.3-3.2); Glucose 103 mg/dl (74-100); Potassium 3.9 mmoL/L (3.5-5.1); Sodium 140 mmol/L (136-145); Total Protein,Serum 6.6 g/dl (6.3-8.2)
== END ==
PROVIDERS: PCP Nurse Practitioner Family; Visit Provider Nurse Practitioner Family
DX: E11.40 Type 2 diabetes mellitus with diabetic neuropathy, unspecified (principal); D50.9 Iron deficiency anemia, unspecified
CPT/HCPCS: 36415; 80053; 83036; 85025

== ENCOUNTER 2023-07-19 12:48 | Outpatient (CLI) | payer BC, SELFPAY ==
--- NOTE | 2023-07-19 13:17 | MM_ITS ---
PROCEDURE INFORMATION: Exam: US Left Breast, Complete MG Bilateral Screening 3D Mammography Exam date and time: 07/19/2023 1:04 PM Age: 53 years old Clinical indication: Screening examination and continued six-month follow-up for probably benign sonographic findings on the left at 4 and 12 o'clock since 07/15/2021. TECHNIQUE: Imaging protocol: Complete ultrasound of all four quadrants of the left breast and the retroareolar regions, including ultrasound of the axilla when performed. Bilateral Screening tomosynthesis and 2D mammography including computer-aided detection (CAD) when performed. A triangular marker is placed on left - at area of dent concern, as per technologist notes. COMPARISON: 1. MG MM DIG MAMM DX UNILAT LT CAD 01/14/2023 1:52 PM 2. MG MM DIG MAMM BI DX W/CAD 07/17/2022 1:51 PM 3. MG MM DIG MAMM DX UNILAT LT CAD 01/13/2022 1:05 PM 4. MG MM DIG SCREENING MAMM BI W/CAD 07/03/2021 10:56 AM FINDINGS: MAMMOGRAPHY: Breast composition: There are scattered areas of fibroglandular density. Mass: Similar 0.6 cm oval mass/asymmetry best seen in the outer lower left breast, anterior 3rd, CC frame 17 and MLO projection, frame 17, no significant change since 07/03/2021. A triangular marker is in the region of the mammographic mass, Architectural distortion: None. Calcifications: No suspicious calcifications. Asymmetric density: None. Skin thickening: None. Axillary adenopathy: None. ULTRASOUND: Left sonography, all 4 quadrants, retroareolar and axilla. At 12 o'clock 5 cm from the nipple, probable complicated avascular cyst measuring 0.3 x 0.3 x 0.3 cm which measured 0.5 x 0.2 x 0.4 cm on 01/14/2023. At 12 o'clock 3 cm from the nipple, probable complicated cyst measuring 0.2 x 0.1 x 0.2 cm, which measured 0.3 x 0.6 x 0.2 cm on 08/17/2022. At 2 o'clock 5 cm from the nipple, probable complicated avascular cyst measuring 0.6 x 0.3 x 0.6 cm which measured 0.6 x 0.3 x 0.7 cm on 01/13/2022. At 4 o'clock 3 cm from the nipple, oval hypoechoic avascular mass or masses with two measurements: measuring 0.6 x 0.4 cm and measuring 1.1 x 0.5 cm - which measured 0.8 x 0.3 cm and 1.1 x 0.5 cm on 01/13/2022. Sonographically unremarkable axillary lymph node. IMPRESSION: See comments No significant change in probably benign mammographic and sonographic masses on the left since June 2022, continued six-month follow-up left diagnostic mammogram and left sonography recommended unless otherwise clinically indicated. Please also note that patient reports a dent in the skin is in the region of the mammographic mass, correlate clinically. Further evaluation of a palpable abnormality should be based on clinical grounds regardless of radiographic findings or lack thereof. ASSESSMENT: BI-RADS Category 3: Probably benign
== END 2023-07-19 23:59 ==
LOC: RAD 12:49
PROVIDERS: PCP Nurse Practitioner Family; Visit Provider Obstetrics & Gynecology
DX: Z12.31 Encounter for screening mammogram for malignant neoplasm of breast (principal)
CPT/HCPCS: 76641; 77063; 77067

== ENCOUNTER 2023-09-03 07:17 | Outpatient (CLI) | payer BC, SELFPAY ==
[2023-09-03 07:53] LABS: Basophils # 0.1 K/mm3 (0-0.2); Basophils % 0.9 % (0.1-2.0); Eosinophils # 0.1 K/mm3 (0.0-0.4); Eosinophils % 1.6 % (0.1-12.0); Hematocrit 46.4 % (37.0-47.0); Lymphocytes # 2.1 K/mm3 (0.7-4.5); Lymphocytes % 34.5 % (10-50); Mean Corpuscular HGB Conc 32.3 g/dL (31.8-35.4); Mean Corpuscular Hemoglobin 30.2 pg (27.0-31.2); Mean Corpuscular Volume 93.5 fl (81-99); Mean Platelet Volume 8.7 fl (7.4-10.4); Monocytes # 0.4 K/mm3 (0.1-1.0); Monocytes % 7.1 % (1.7-9.3); Neutrophils # 3.4 K/mm3 (1.8-7.8); Neutrophils % 55.9 % (37.0-80.0); Platelet Count 228 K/mm3 (142-424); Red Blood Count 4.97 M/mm3 (4.20-5.40); Red Cell Distribution Width 12.9 % (11.5-17.5); White Blood Count 6.1 K/mm3 (4.8-10.8)
[2023-09-03 08:10] LABS: Alanine Aminotransferase 11 U/L (12-78); Albumin Level 4.3 g/dl (3.5-5.0); Alkaline Phosphatase 54 U/L (38-126); Aspartate Amino Transferase 19 U/L (14-36); Bilirubin,Total 1.5 mg/dl (0.2-1.3); Blood Urea Nitrogen 12 mg/dl (7-17); Calcium 9.2 mg/dl (8.4-10.2); Carbon Dioxide 29 mmol/L (22.0-30.0); Chloride 106 mmol/L (98-107); Chol/HDL Ratio 3.6 (1-3.5); Cholesterol 157 mg/dl (140-200); Estimated Glomerular Filt Rate 76 ml/min (>60); GFR (African American) 92 ML/MIN (>60); Globulin 2.2 g/dL (1.3-3.2); Glucose 104 mg/dl (74-100); HDL Cholesterol 44 mg/dl (40-60); Sodium 141 mmol/L (136-145); Total Protein,Serum 6.5 g/dl (6.3-8.2); Triglycerides 95 mg/dl (30-150); VLDL Cholesterol 19 mg/dL (0-40)
[2023-09-03 08:21] LABS: Direct LDL Cholesterol 81.04 mg/dL (100-129)
[2023-09-03 08:43] LABS: Hemoglobin A1C 5.6 % (4.0-6.0)
[2023-09-03 09:00] LABS: Vitamin B12 270 pg/mL (239-931)
== END 2023-09-03 23:59 ==
LOC: LAB 07:18
PROVIDERS: PCP Nurse Practitioner Family; Visit Provider Nurse Practitioner Family
DX: E11.40 Type 2 diabetes mellitus with diabetic neuropathy, unspecified (principal); D50.9 Iron deficiency anemia, unspecified; E53.8 Deficiency of other specified B group vitamins; E78.5 Hyperlipidemia, unspecified
CPT/HCPCS: 36415; 80053; 80061; 82607; 83036; 85025

== ENCOUNTER 2024-01-18 13:54 | Outpatient (CLI) | payer BC, SELFPAY ==
--- NOTE | 2024-01-18 13:59 | MM_ITS ---
PROCEDURE INFORMATION: Exam: US Left Breast, Complete MG Left Diagnostic Breast Tomosynthesis Exam date and time: 01/18/2024 2:20 PM Age: 53 years old Clinical indication: Short-term radiographic followup; Left breast; masses TECHNIQUE: Imaging protocol: Complete ultrasound of all four quadrants of the left breast and the retroareolar regions, including ultrasound of the axilla when performed. Left Diagnostic tomosynthesis and 2D mammography including computer-aided detection (CAD) when performed. Unilateral or bilateral exam. COMPARISON: US BREAST LT COMPLETE 07/19/2023 1:25 PM FINDINGS: MAMMOGRAPHY: Breast composition: There are scattered areas of fibroglandular density. Breast mammogram findings: There is no stellate mass, architectural distortion or suspicious microcalcifications to suggest malignancy. No focal asymmetries are identified on the current mammogram. No skin thickening or axillary adenopathy. ULTRASOUND: Breast ultrasound findings: Sonographic images of the left breast including the retroareolar region, all 4 quadrants and the axilla do not demonstrate any new solid or cystic masses. Stable hypoechoic mass versus focal fat lobule in the left 4 o'clock axis 3 cm from the nipple measuring 1.1 x 0.5 x 0.7 cm.Minimal subcentimeter cystic change is present in the left 2 o'clock axis. No architectural distortion or acoustical shadowing. No skin thickening or axillary adenopathy. IMPRESSION: Stable hypoechoic solid mass versus focal fat lobule in the left 4 o'clock axis compared to prior sonogram dated 07/19/2023. A six-month follow-up targeted left breast ultrasound is recommended for continued close surveillance. Annual bilateral mammographic screening is also recommended at that time ASSESSMENT: BI-RADS Category 3: Probably benign.
== END 2024-01-18 23:59 | disposition home or self-care (01) ==
LOC: RAD 13:55
PROVIDERS: PCP Internal Medicine Adolescent Medicine; Visit Provider Obstetrics & Gynecology
DX: R92.8 Other abnormal and inconclusive findings on diagnostic imaging of breast (principal)
CPT/HCPCS: 76641; 77061; 77065; G0279

== ENCOUNTER 2024-03-08 07:12 | Outpatient (CLI) | payer BC, SELFPAY ==
[2024-03-08 07:41] LABS: Basophils # 0.1 K/mm3 (0-0.2); Basophils % 0.8 % (0.1-2.0); Eosinophils # 0.1 K/mm3 (0.0-0.4); Eosinophils % 1.1 % (0.1-12.0); Hematocrit 44.7 % (37.0-47.0); Hemoglobin 14.3 g/dL (12.2-16.2); Lymphocytes # 2.3 K/mm3 (0.7-4.5); Lymphocytes % 34.3 % (10-50); Mean Corpuscular HGB Conc 31.9 g/dL (31.8-35.4); Mean Corpuscular Hemoglobin 29.9 pg (27.0-31.2); Mean Corpuscular Volume 93.7 fl (81-99); Monocytes # 0.6 K/mm3 (0.1-1.0); Monocytes % 8.5 % (1.7-9.3); Neutrophils # 3.7 K/mm3 (1.8-7.8); Neutrophils % 55.3 % (37.0-80.0); Platelet Count 233 K/mm3 (142-424); Red Blood Count 4.77 M/mm3 (4.20-5.40); Red Cell Distribution Width 12.8 % (11.5-17.5); White Blood Count 6.8 K/mm3 (4.8-10.8)
[2024-03-08 09:07] LABS: Alanine Aminotransferase 18 U/L (12-78); Albumin Level 3.9 g/dl (3.5-5.0); Albumin/Globulin Ratio 1.4 (1.1-1.8); Alkaline Phosphatase 45 U/L (38-126); Anion Gap 9.3 mEq/L (5-15); Aspartate Amino Transferase 21 U/L (14-36); Bilirubin,Total 1.3 mg/dl (0.2-1.3); Blood Urea Nitrogen 17 mg/dl (7-17); Calcium 9.3 mg/dl (8.4-10.2); Carbon Dioxide 26 mmol/L (22.0-30.0); Chloride 108 mmol/L (98-107); Chol/HDL Ratio 3.3 (1-3.5); Cholesterol 168 mg/dl (140-200); Estimated Glomerular Filt Rate 76 ml/min (>60); GFR (African American) 92 ML/MIN (>60); Globulin 2.7 g/dL (1.3-3.2); Glucose 126 mg/dl (74-100); HDL Cholesterol 51 mg/dl (40-60); Potassium 4.3 mmoL/L (3.5-5.1); Sodium 139 mmol/L (136-145); Total Protein,Serum 6.6 g/dl (6.3-8.2); Triglycerides 76 mg/dl (30-150); VLDL Cholesterol 15 mg/dL (0-40)
[2024-03-08 09:18] LABS: Direct LDL Cholesterol 96.09 mg/dL (100-129)
[2024-03-08 09:55] LABS: Vitamin B12 265 pg/mL (239-931)
[2024-03-08 11:51] LABS: Hemoglobin A1C 5.8 % (4.0-6.0)
== END 2024-03-08 23:59 | disposition home or self-care (01) ==
LOC: LAB 07:16
PROVIDERS: PCP Nurse Practitioner Family; Visit Provider Nurse Practitioner Family
DX: E11.40 Type 2 diabetes mellitus with diabetic neuropathy, unspecified (principal); E53.8 Deficiency of other specified B group vitamins; E78.5 Hyperlipidemia, unspecified; Z79.84 Long term (current) use of oral hypoglycemic drugs
CPT/HCPCS: 36415; 80053; 80061; 82607; 83036; 85025

== ENCOUNTER 2024-05-25 06:57 | Day surgery (SDC) | payer BC, SELFPAY ==
[2024-05-17 15:55] VITALS: BMI 52.0
[2024-05-25 07:20] VITALS: BP 120/78; PULSE 95; RESP 18; TEMP 37; O2SAT 100
[2024-05-25 07:38] LABS: Urine Pregnancy, HCG Qual. Negative (Negative)
--- NOTE | 2024-05-25 07:38 | EXP.ANES.CKL ---
[facility] Disclaimer: The information contained in this section may have been updated after the patient was seen, as this information can be updated by other users. Medical History (Updated 05/25/24 @ 07:25 by Fransisca Yo RN) History of COVID-19 Diabetes Surgical History (Updated 05/25/24 @ 07:25 by Fransisca Yo RN) History of cholecystectomy Previous section H/O tubal ligation Hx of hand surgery Family History Mother Heart disease Social History (Updated 05/25/24 @ 07:25 by Fransisca Yo RN) Smoking Status: Never smoker alcohol intake: never substance use type: denies use current occupational status: employed Travel in the last 8 weeks: None [facility] Anesthesia Checklist Patient Identification Patient Identification: Arm Band and Verbal (Name & ) Structural Data Admitted From: Home Planned Operative Procedure/s: Colonoscopy Consent for Planned Operative Procedure(s) Verified: Yes Verified Documents: Surgical Consent and History and Physical NPO Status Verified Time NPO: 06:35 Chart Verification Results Verified: CBC, BMP and ECG Additional verifications Fingerstick Blood Glucose: 92 Patient : No Anesthesia Reactions: No Cardiovascular Assessment Heart Sounds: S1 & S2 Pulse Rhythm: Irregular Peripheral Edema: No Airway Assessment Mallampati Score:: Class III C-Spine Mobility Assessed: Yes (FROM) TMJ Mobility Assessed: Yes Dentition: Good Dentition (Nothing loose per pt.) Neurological Assessment Level of Consciousness: Awake, Alert, Appropriate and Follows Commands Hx Seizures: No Numbness or tingling in extremities: No Anesthesia Plan Anesthesia Risk discussed: Yes Anesthesia Plan: Verified ASA Class: II Anesthesia Type: MAC
[2024-05-25] MEDS: LACTATED RINGERS 1000ML 1,000 ML 25 ML IV (07:41)
[2024-05-25 07:44] VITALS: BMI 23.6
[2024-05-25 07:55] VITALS: O2SAT 100
--- NOTE | 2024-05-25 07:59 | P.HP_ITS ---
History of Present Illness *Admission Date: 05/25/24 *Reason for visit:: Screening *History of present illness: Mrs. Henry is a 53-year-old female who is here for initial screening colonoscopy. The examination is deemed medically necessary for screening. The patient has been seen, interviewed and examined prior to the procedure by both myself and the anesthesia provider. [facility] Disclaimer: The information contained in this section may have been updated after the patient was seen, as this information can be updated by other users. Medical History (Updated 05/25/24 @ 08:00 by Silver Mcnamara II, MD) History of COVID-19 Diabetes Surgical History (Updated 05/25/24 @ 07:25 by Fransisca Yo RN) History of cholecystectomy Previous section H/O tubal ligation Hx of hand surgery Family History Mother Heart disease Social History (Updated 05/25/24 @ 07:25 by Fransisca Yo RN) Smoking Status: Never smoker alcohol intake: never substance use type: denies use current occupational status: employed Travel in the last 8 weeks: None caffeine: Yes Other Medical History Have you received the Flu Vaccine for this season: No Have you received the Pneumonia Vaccine: No Review of Systems Review of Systems Review of systems (narrative): Negative *Cardiovascular Comments: Negative *Gastrointestinal Comments: Negative *Genitourinary Comments: Negative *Musculoskeletal Comments: Negative *Neurologic Comments: Negative Meds Home Medications and Allergies Home Medications ?Medication ?Instructions ?Recorded ?Confirmed ?Type sodium,potassium,mag sulfates 17.5 See Rx Instructions PO .COMPLEX 05/11/24 Rx gram-3.13 gram-1.6 gram oral soln #354 mL (Suprep Bowel Prep Kit) semaglutide 3 mg tablet (Rybelsus) 3 mg PO DAILY 05/17/24 05/25/24 History New Prescriptions to Start Prescriptions: Allergies Allergy/AdvReac Type Severity Reaction Status Date / Time Sulfa (Sulfonamide Allergy Intermediate Hives Verified 05/25/24 07:19 Antibiotics) Exam Data for Last 24 hours Vital signs and Labs for Last 24 Hours: Temp Pulse Resp BP Pulse Ox O2 Del Method O2 Flow Rate 98.6 F 95 H 18 120/78 100 Nasal Cannula 5 05/25/24 07:20 05/25/24 07:20 05/25/24 07:20 05/25/24 07:20 05/25/24 07:20 05/25/24 07:55 05/25/24 07:55 Laboratory Results - last 24 hr 05/25/24 07:11: Urine HCG, Qual Negative I & O for Last 24 hours: Intake & Output 05/22/24 05/23/24 05/24/24 05/25/24 23:59 23:59 23:59 23:59 Weight 142 lb *Routine HEENT Exam Head: Present normocephalic Eye: Present EOMI and PERRL ENT: Present mucous membranes moist *Routine Neck Exam Neck: Present supple *Routine Respiratory Exam Respiratory: Present CTA bilaterally *Routine Cardiovascular Exam Cardiovascular: Present RRR *Routine Abdominal Exam Abdominal: Present soft and normoactive bowel sounds; Absent tenderness *Routine Rectal Exam Rectal:: deferred *Routine Genitalia Exam Genitalia:: deferred *Routine Extremities Exam Extremities: Absent cyanosis, clubbing or edema *Routine Skin Exam Skin: Present warm; Absent rash *Routine Neurological Exam Neurological: Present alert and oriented X3 Assessment and Plan *Assessment and plan (1) Screening for colon cancer: Status: Acute Category: Medical Code(s): Z12.11 - Encounter for screening for malignant neoplasm of colon Plan A/P: 1. Screening for colon cancer is the preprocedural diagnosis. The patient will be anesthetized/sedated using MAC sedation. The patient has been seen and examined. Cardiac and lung assessment prior to the examination is stable. Proceed with planned screening colonoscopy
--- NOTE | 2024-05-25 08:01 | P.PCN_ITS ---
[facility] Procedure Note Date: 05/25/24 Time: 08:17 Procedure Note:: Colonoscopy Procedure Report: Colonoscopy with cold snare polypectomy and cold biopsies Endoscopist: Silver Mcnamara II, MD Referring physician: Austin Cherry M.D. Date of Procedure: May 25, 2024 Equipment: Olympus 190 variable stiffness pediatric colonoscope Sedation: MAC sedation Indication: Mrs. Henry is a 53-year-old female who is here for initial screening colonoscopy. The patient has had chronic diarrhea and probable longstanding IBS diarrhea that she has had for at least 15 years since her cholecystectomy in 2007. She does get moderate bloating and lower abdominal discomfort. This is unchanged. She reports no rectal bleeding, weight loss or family history of colon cancer. She reports no family history of IBD or celiac disease. She does note mucus with her bowel movements. She will get fecal urgency and frequency. Procedure: Prior to the procedure, a history and physical exam was performed, and patient's medications and allergies were reviewed. The risks, benefits and alternatives of the sedation and procedure were discussed with the patient. All questions were answered and informed consent was obtained. The patient was brought to the procedure room. Patient identification and proposed procedure were verified by the physician and the nurse. The patient was placed in a left lateral decubitus position and the scope was passed under direct vision. Throughout the procedure, the patient's blood pressure, pulse, and oxygen saturations were monitored continuously. The colonoscopy was accomplished without difficulty. The patient tolerated the procedure well. Findings: On digital rectal examination there was normal rectal tone. There were no external hemorrhoids. The colonoscope was introduced through the anal canal to the rectum and advanced to the cecum. The ileocecal valve and appendiceal orifice were identified. The scope was advanced a short distance into the ileum which appeared grossly normal. The scope was then withdrawn into the colon. There was a single flat 4 to 5 mm ascending polyp with a mucus cap (probable small serrated adenoma) removed via cold snare polypectomy. The remaining cecum, ascending and transverse colon and mucosa were grossly normal. There were very mildly scattered diverticuli throughout the descending and sigmoid colon (LEFT colon). The rectum itself was normal. Upon retroflexion within the rectum there were grade 2 internal hemorrhoids. The preparation was excellent throughout with [place] Preparation Score of 9. The cecal time was 11 minutes. Impression: 1. Diminutive ascending polyp 2. Mild sigmoid diverticulosis 3. Grade 2 internal hemorrhoids Plan: I will follow-up the polyp histology and recommend repeat surveillance colonoscopy based upon the pathology. I will follow-up biopsies to rule out microscopic colitis. I would encourage fiber bulk (i.e. bulking FiberCon/polycarbophil 2 tablets p.o. every morning) and would recommend treatment for her IBS diarrhea with colestipol. I do feel that some of this is bile acid diarrhea.which is characterized by excess bile within the colon. This results in increased secretion and motility. This occurs after gallbladder surgery due to the continuous drainage of bile into the small intestine which overcomes the resorbtive capacity of the lower small intestine to reabsorb this bile and bile salts. I will send colestipol to the pharmacy.
[2024-05-25 08:20] VITALS: BP 103/61; PULSE 88; RESP 18; TEMP 36.2; O2SAT 100
[2024-05-25 08:30] VITALS: BP 107/84; PULSE 89; RESP 20; O2SAT 100
[2024-05-25 08:40] VITALS: BP 103/69; PULSE 86; RESP 20; O2SAT 100
[2024-05-25 08:50] VITALS: BP 104/72; PULSE 87; RESP 18; O2SAT 100
[2024-05-26 07:51] LABS: POC Glucose,Bedside 92 (70-110)
== END 2024-05-25 08:50 | disposition home or self-care (01) ==
PROVIDERS: PCP Internal Medicine Adolescent Medicine; Visit Provider Internal Medicine Gastroenterology
PROC: (CPT 45385; principal; 2024-05-25 08:30)
DX: Z12.11 Encounter for screening for malignant neoplasm of colon (principal); K58.0 Irritable bowel syndrome with diarrhea; R15.2 Fecal urgency; K63.5 Polyp of colon; K57.30 Diverticulosis of large intestine without perforation or abscess without bleeding; K64.1 Second degree hemorrhoids
CPT/HCPCS: 45385; 81025; 82962; J7120

== ENCOUNTER 2024-07-20 13:24 | Outpatient (CLI) | payer BC, SELFPAY ==
--- NOTE | 2024-07-20 13:27 | MM_ITS ---
PROCEDURE INFORMATION: Exam: MG Bilateral Screening 3D Mammography Exam date and time: 07/20/2024 1:43 PM Age: 54 years old Clinical indication: Screening examination TECHNIQUE: Imaging protocol: Bilateral Screening tomosynthesis and 2D mammography including computer-aided detection (CAD) when performed. COMPARISON: 1. MG MM DIG MAMM DX UNILAT LT CAD 01/18/2024 1:50 PM 2. MG MM DIG SCREENING MAMM BI W/CAD 07/19/2023 1:04 PM FINDINGS: MAMMOGRAPHY: Breast composition: There are scattered areas of fibroglandular density. Mass: None. Architectural distortion: None. Calcifications: No suspicious calcifications. Asymmetric density: None. Skin thickening: None. Axillary adenopathy: None. IMPRESSION: No mammographic evidence of malignancy. Annual screening is recommended unless otherwise clinically indicated. ASSESSMENT: BI-RADS Category 1: Negative.
== END 2024-07-20 23:59 | disposition home or self-care (01) ==
LOC: RAD 13:25
PROVIDERS: PCP Internal Medicine Adolescent Medicine; Visit Provider Obstetrics & Gynecology
DX: Z12.31 Encounter for screening mammogram for malignant neoplasm of breast (principal)
CPT/HCPCS: 77063; 77067

== ENCOUNTER 2024-08-11 08:00 | Outpatient (RCR) | payer BC, SELFPAY ==
--- NOTE | 2024-07-27 15:54 | HMH.OTOPEV ---
OT Inpatient Evaluation Rehab OT Outpatient Eval Start: 07/27/24 15:38 Freq: Status: Active Protocol: Document 07/27/24 15:39 RMARSHALL (Rec: 07/27/24 15:51 [id number] E-signed By Madiha Walsh, OT Outpatient Therapy Subjective History Subjective History Pt is a 54 year old female who reports to therapy for initial evaluation to left elbow. Pt has been experiencing pain to left medial elbow since summer. However, within the past few months her pain has increased and become constant. Pt does not recall any type of injury causing pain to begin. She does engage in weight lifting as recreational exercise and reports this is when she began to feel the pain. Luckily patient is right hand dominant. Pt has not had any imaging completed at this time. Pt's AROM at left elbow is within normal limits. 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 Pt will continue to be seen twice a week in order to address all left elbow deficits. STG L hand leading firefighter strength: 55 lbs LTG L hand leading firefighter strength: 60 lbs New diagnosis of cancer in past 12 No months? Chief Complaint Pain,Stiff,Weakness,Decreased Embalmer Assistant Strength Symptom Type Ache,Throb,Sharp,Dull Symptoms Relieved By Rest/Positioning Symptoms Aggravated By Physical Activity,Lifting Prior Functional Limitations None Current Functional Limitations Reaching,Lifting,Housework, Desk Work/Reading,Sleeping, Recreation Activity Symptom Description Constant but Variable Level of pain today (0-10) 2 Pain scale - at its best (0-10) 2 Pain scale - at its worst (0-10) 7 Shoulder/Elbow Eval Shoulder Objective Measurements Elbow Objective Measurements Elbow ROM Left Elbow Extension Active Range of Motion ( 0 degrees degrees) Elbow Flexion Active Range of Motion ( 135 degrees degrees) Elbow Pronation of Forearm Range of 90 degrees Motion (degrees) Elbow Supination of Forearm Range of 90 degrees Motion (degrees) Elbow MMT Elbow Flexion Strength Grade 4- Good- Elbow Extension Strength Grade 4- Good- Supination Strength Grade 4- Good- Pronation Strength Grade 4- Good- Wrist/Hand Eval Embalmer Assistant/Pinch Strength Right Embalmer Assistant Strength Measurement (lbs) 68 Left Embalmer Assistant Strength Measurement (lbs) 50 QuickDASH Activities Please rate your ability to do the following activities in the last week by selecting the number below the appropriate response. 1. Open a tight or new jar. Mild difficulty 2. Do heavy sap analyst (e.g., wash Moderate difficulty hawley, floors). 3. Carry a shopping bag or briefcase. Mild difficulty 4. Wash your back. No difficulty 5. Use a knife to cut food. No difficulty 6. Recreational activities in which you Moderate difficulty take some force or impact through your arm, shoulder, or hand (e.g., golf, hammering, tennis, etc.). 7. During the past week, to what extent Slightly has your arm, shoulder or hand problem interfered with your normal social activities with family, friends, neighbors or groups? 8. During the past week, were you Slightly limited limited in your work or other regular daily activites as a result of your arm, shoulder or hand problem? 9. Arm, shoulder or hand pain. Mild 10. Tingling (pins and needles) in your None arm, shoulder or hand. 11. During the past week, how much Moderate difficulty difficulty have you had sleeping because of the pain in your arm, shoulder or hand? Quick DASH 22 OT Outpatient Assessment Impairments Problems/Impairments Palpation Tenderness,Impaired Range of Motion,Impaired Strength,Impaired Endurance, Impaired Lifting,Impaired Household Care,Impaired Recreational Activities, Impaired Work Activities, Subjective C/O Pain Prognosis Rehab Potential Good Clinical Impression Consistent with Diagnosis Yes Short Term Goals Number of Weeks 3 Increase Strength Yes: 4/5 throughout left elbow Increase Endurance Yes: Pt will tolerate L elbow exercises for ~15 minute prior to rest. Decrease Subjective C/O Pain Yes: 4/10 pain at worst Patient to be Ind w/ HEP Yes: AROM/AAROM exercises; leading firefighter strengthening exercises Improve Quick Dash Score Yes: Activities: 20 or below Vp Compliance Goals Number of Weeks 6 Increase Strength Yes: 5/5 throughout left elbow Increase Endurance Yes: Pt will tolerate 20 minutes of L elbow exercises prior to rest. Decrease Subjective C/O Pain Yes: 2/10 at worst Patient to be Ind w/ Advanced HEP Yes: Advanced strengthening Improve Quick Dash Score Yes: Activities: 15 or below Outpatient Therapy Plan of Care Treatment Plan May Include Therapeutic Exercise Including Home Yes Exercise Program Manual Therapy Techniques Yes Neuromuscular Re-education Yes Thermal Modalities Yes Electrical Stimulation Yes Ultrasound/Phonophoresis Yes Iontophoresis Yes Parrafin Yes Orthotics/Bracing/Splinting Yes Massage Yes Eval/Re-Eval Yes Frequency Times per week 2 Duration Number of Weeks 6 Addendums This patient is a candidate for social No or vocational rehab? Patient/Guardian verbally acknowledges Yes understanding of treatment program and consents to further treatment? Patient/Guardian verbally acknowledges Yes understanding of diagnosis, prognosis and goals for treatment? Eval Complexity OT Charge 00726 - Moderate Complexity PHYSICIAN CERTIFICATION: I certify the specified therapy services for Virginia Henry are required, authorized, and reviewed every 30 days.
== END 2024-08-11 23:59 | disposition home or self-care (01) ==
LOC: OT 08:00
PROVIDERS: PCP Internal Medicine Adolescent Medicine; Visit Provider Nurse Practitioner Family
DX: M77.02 Medial epicondylitis, left elbow (principal)
CPT/HCPCS: 97014; 97035; 97110; 97140; 97166; 97530; G0283

== ENCOUNTER 2024-09-05 07:04 | Outpatient (CLI) | payer BC, SELFPAY ==
[2024-09-05 07:36] LABS: Basophils # 0.1 K/mm3 (0-0.2); Eosinophils # 0.1 K/mm3 (0.0-0.4); Eosinophils % 1.1 % (0.1-12.0); Hemoglobin 13.4 g/dL (12.2-16.2); Lymphocytes % 38.7 % (10-50); Mean Corpuscular HGB Conc 33.5 g/dL (31.8-35.4); Mean Corpuscular Hemoglobin 29.3 pg (27.0-31.2); Mean Corpuscular Volume 87.3 fl (81-99); Mean Platelet Volume 10.1 fl (7.4-10.4); Monocytes # 0.5 K/mm3 (0.1-1.0); Monocytes % 9.9 % (1.7-9.3); Neutrophils # 2.6 K/mm3 (1.8-7.8); Neutrophils % 49.3 % (37.0-80.0); Platelet Count 240 K/mm3 (142-424); Red Blood Count 4.58 M/mm3 (4.20-5.40); Red Cell Distribution Width 12.5 % (11.5-17.5); White Blood Count 5.3 K/mm3 (4.8-10.8)
[2024-09-05 08:05] LABS: Alanine Aminotransferase 16 U/L (12-78); Albumin Level 4.3 g/dl (3.5-5.0); Alkaline Phosphatase 46 U/L (38-126); Anion Gap 9.8 mEq/L (5-15); Aspartate Amino Transferase 20 U/L (14-36); Bilirubin,Total 2.2 mg/dl (0.2-1.3); Blood Urea Nitrogen 10 mg/dl (7-17); Calcium 9.1 mg/dl (8.4-10.2); Carbon Dioxide 25 mmol/L (22.0-30.0); Chloride 107 mmol/L (98-107); Chol/HDL Ratio 3.1 (1-3.5); Cholesterol 137 mg/dl (140-200); Estimated Glomerular Filt Rate 88 ml/min (>60); GFR (African American) 106 ML/MIN (>60); Globulin 2.1 g/dL (1.3-3.2); Glucose 99 mg/dl (74-100); HDL Cholesterol 44 mg/dl (40-60); Potassium 3.8 mmoL/L (3.5-5.1); Sodium 138 mmol/L (136-145); Total Protein,Serum 6.4 g/dl (6.3-8.2); Triglycerides 73 mg/dl (30-150); VLDL Cholesterol 15 mg/dL (0-40)
[2024-09-05 08:16] LABS: Direct LDL Cholesterol 66.18 mg/dL (100-129)
[2024-09-05 08:22] LABS: Free T4 (Free Thyroxine) 0.92 ng/dl (0.78-2.19)
[2024-09-05 08:23] LABS: 25-OH Vitamin D, Total 52.7 ng/mL (30-100)
[2024-09-05 08:24] LABS: Creatinine,Urine Random 244 mg/dL (Not Estab.)
[2024-09-05 08:27] LABS: Microalbumin/Creatinine Ratio 4.2
[2024-09-05 08:44] LABS: Hemoglobin A1C 5.5 % (4.0-6.0)
[2024-09-05 08:55] LABS: Vitamin B12 273 pg/mL (239-931)
[2024-09-05 10:23] LABS: Thyroid Stimulating Hormone 1.48 uIU/mL (0.465-4.68)
[2024-09-05 10:27] LABS: Ferritin 140 ng/ml (11.1-264)
[2024-09-06 08:13] LABS: FSH 6.3 mIU/mL (.); LH 5.9 mIU/mL (.)
== END 2024-09-05 23:59 | disposition home or self-care (01) ==
LOC: LAB 07:06
PROVIDERS: PCP Nurse Practitioner Family; Visit Provider Nurse Practitioner Family
DX: E11.40 Type 2 diabetes mellitus with diabetic neuropathy, unspecified (principal); D50.9 Iron deficiency anemia, unspecified; E53.8 Deficiency of other specified B group vitamins; E78.5 Hyperlipidemia, unspecified; N92.6 Irregular menstruation, unspecified
CPT/HCPCS: 36415; 80053; 80061; 82043; 82306; 82570; 82607; 82670; 82728; 82746; 83001; 83002; 83036; 84439; 84443; 85025

== ENCOUNTER 2024-09-08 14:29 | Outpatient (CLI) | payer BC, SELFPAY ==
--- NOTE | 2024-09-08 14:33 | XR_ITS ---
FINAL REPORT CLINICAL HISTORY: MEDIAL EPICONDYLITIS OF LEFT ELBOW COMPARISON: None FINDINGS: LEFT ELBOW 3 views were obtained. There is no acute fracture or dislocation. There is no joint effusion. The joint spaces are intact. There is no soft tissue abnormality. IMPRESSION: No acute bony abnormality. Reviewed, Interpreted and Dictated by Levy Guzman MD Transcribed by Medina Taylor Authenticated and [facility]
== END 2024-09-08 23:59 | disposition home or self-care (01) ==
LOC: RAD 14:30
PROVIDERS: PCP Nurse Practitioner Family; Visit Provider Nurse Practitioner Family
DX: M77.02 Medial epicondylitis, left elbow (principal)
CPT/HCPCS: 73080

== ENCOUNTER 2024-09-14 08:00 | Outpatient (RCR) | payer BC, SELFPAY ==
--- NOTE | 2024-08-30 11:47 | HMH.RHREAS ---
Rehab Reassessment Rehab OP Re-assessment Start: 08/22/24 16:20 Freq: Status: Active Protocol: Document 08/30/24 10:38 ELLIOTT (Rec: 08/30/24 11:46 ELLIOTT [id number]) E-signed By Madiha Walsh OT Rehab Re-assessment Subjective Subjective I do feel like it is better, but is bee tender. Objective Objective Notes Pt continues to be seen weekly in order to address left elbow deficits. Each session, pt engages in AROM and Strengthening exercises for increased strength at left elbow. Pt also receives soft tissue massage and PROM manual stretching to left elbow in all planes; flexion, extension , supination, and pronation. Modalities are provided in order to decrease pain/ inflammation. Assessment Progress Assessment Progressing as Expected Assessment Notes Pt reports her pain has improved slightly since starting therapy. She rates her worst pain at 4/10 which is improved since initial evaluation. Pt's strength has improved too and pt's AROM remains the same. 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 Current strength MMT Flex: 4 Ext: 4 Sup: 4 Pro: 4 L hand tassel clipper strength: [address] goals [address]-4 Goals Not Met See below Revised Goals ST LT-5 Plan Plan Continue with OT plan of care at this time. Frequency of Therapy 2x's a week Duration of therapy 4 weeks Time and Billing Re-Eval Time 8 Re-Eval Billing Units 1 Charge for OT reassessment? Yes PHYSICIAN CERTIFICATION: I certify the specified therapy services for Virginia Henry are required, authorized, and reviewed every 30 days.
== END 2024-09-14 23:59 | disposition home or self-care (01) ==
LOC: OT 08:00
PROVIDERS: PCP Internal Medicine Adolescent Medicine; Visit Provider Nurse Practitioner Family
DX: M77.02 Medial epicondylitis, left elbow (principal)
CPT/HCPCS: 97014; 97035; 97110; 97140; 97168; G0283

== ENCOUNTER 2024-09-21 14:44 | Outpatient (CLI) | payer BC, SELFPAY ==
--- NOTE | 2024-09-21 14:47 | MR_ITS ---
FINAL REPORT TECHNIQUE: Multiplanar MR without contrast CLINICAL HISTORY: MEDIAL LEFT ELBOW PAIN NO KNOWN INJURY FINDINGS: The marrow signal pattern is normal. Specifically there is no evidence of bone contusion or fracture. A physiologic joint effusion is present. There is no osteochondral defect. Medial and lateral collateral ligaments are intact. Biceps and triceps tendons are unremarkable. There is mild increased signal of the flexor tendon at the medial epicondyle attachment. Significant overlying subcutaneous edema is identified. The appearance is consistent with medial epicondylitis. Extensor tendons are normal. IMPRESSION: Medial epicondylitis with significant associated subcutaneous edema. No tendon tear. Remaining osseous structures unremarkable. Reviewed, Interpreted and Dictated by Levy Guzman MD Transcribed by Chika Mccain Authenticated and [facility]
== END 2024-09-21 23:59 | disposition home or self-care (01) ==
LOC: RAD 14:45
PROVIDERS: PCP Nurse Practitioner Family; Visit Provider Nurse Practitioner Family
DX: M77.02 Medial epicondylitis, left elbow (principal)
CPT/HCPCS: 73221

== ENCOUNTER 2025-03-20 07:09 | Outpatient (CLI) | payer BC, SELFPAY ==
--- OUTSIDE RECORDS SUMMARY | 2024-05-17 04:00 | XMS_ITS ---
Author Organization [facility] Address [address] [facility] [address] [place] [address] Care Team Providers Care Insurance Service Representative Name Role Phone BeckiGuillermoJustina Jolynn [phone] REASON FOR VISIT Annual Social History Sex Assigned At : Social History Observation Description Sex Assigned At Female Encounters Encounter Location Date Provider Diagnosis [facility] [address] [facility] [address] [place] [address] 05/17/2024 Justina Connell Plan Of Treatment Next Appt Details Provider Name:Justina Connell , 08/02/2025 08:00:00 AM, [address] [facility] [address], [place], [address], Progress Notes * [place] HENRY LDOB:[birth year] (54 yo F)Acc No.[id number]:05/17/2024 Progress Note Patient: Anushka Penabrandyn Dietz Provider: Joe Connell APRN :1970 A ge:53 Y S ex:Female Date:05/17/2024 Address: [address] [id number] Subjective: * Chief Complaints: * A nnual * Electronic signature of Juan Connell APRN on 03/20/2025 at 07:13 AM EDT Sign off status: Pending Visit Status: R /S (Rescheduled) * Provider: Joe Connell APRN Date: 1 07/17/2023 Generated for Tristian baxter/Tamiko/Laurie on: 0 03/20/2025 07:13 AM EDT
--- OUTSIDE RECORDS SUMMARY | 2024-05-25 04:30 | XMS_ITS ---
Author Organization [facility] Address [address] [facility] [address] [place] [address] Care Team Providers Care Resource Engineer Name Role Phone BeckiGuillermoJustina Jolynn [phone] REASON FOR VISIT Annual Social History Sex Assigned At : Social History Observation Description Sex Assigned At Female Encounters Encounter Location Date Provider Diagnosis [facility] [address] [facility] [address] [place] [address] 05/25/2024 Justina Connell Plan Of Treatment Next Appt Details Provider Name:Justina Connell , 08/02/2025 08:00:00 AM, [address] [facility] [address], [place], [address], Progress Notes * [place] HENRY LDOB:[birth year] (54 yo F)Acc No.[id number]:05/25/2024 Progress Note Patient: Anushka Penabrandyn Dietz Provider: Joe Connell APRN :1970 A ge:53 Y S ex:Female Date:05/25/2024 Address: [address] [id number] Subjective: * Chief Complaints: * A nnual * Electronic signature of Juan Connell APRN on 03/20/2025 at 07:13 AM EDT Sign off status: Pending Visit Status: R /S (Rescheduled) * Provider: Joe Connell APRN Date: 1 07/26/2023 Generated for Tristian baxter/Tamiko/Laurie on: 0 03/20/2025 07:13 AM EDT
--- OUTSIDE RECORDS SUMMARY | 2024-06-15 05:15 | XMS_ITS ---
Author Organization [facility] Address [address] [place] [address] Care Team Providers Care Handle Lathe Operator Name Role Phone BeckiGuillermo hernandezley Jolynn [phone] REASON FOR VISIT Annual Social History Sex Assigned At : Social History Observation Description Sex Assigned At Female Encounters Encounter Location Date Provider Diagnosis [facility] [address] [facility] [address] [place] [address] 06/15/2024 Justina Connell Plan Of Treatment Next Appt Details Provider Name:Justina Connell , 08/02/2025 08:00:00 AM, [address], [address], [place], [address], Progress Notes * Virginia HENRY LDOB:[birth year] (54 yo F)Acc No.[id number]:06/15/2024 Progress Note Patient: Anushka Penabrandyn Dietz Provider: Joe Connell APRN :1970 A ge:53 Y S ex:Female Date:06/15/2024 Address: [address] [place] Subjective: * Chief Complaints: * A nnual * Electronic signature of Juan Connell APRN on 03/20/2025 at 07:13 AM EDT Sign off status: Pending Visit Status: R /S (Rescheduled) * Provider: Joe Connell APRN Date: 1 08/16/2023 Generated for Tristian baxter/Tamiko/Laurie on: 0 03/20/2025 07:13 AM EDT
--- OUTSIDE RECORDS SUMMARY | 2025-03-20 07:13 | XMS_ITS | Patient Health Record ---
Author Organization [facility] Address [address] [place] [address] Care Team Providers Care Plastic Welder Name Role Phone Justina Connell Unavailable [phone] Allergies Allergen (clinical drug ingredient) Drug/Non Drug Allergy documented on EMR Reaction Allergy Type Onset Date Status sulfamethoxazole / trimethoprim SULFAMETHOXAZOLE-T RIMETHOPRIM Unspecified Drug Allergy 02/24/2017 Active Results Component Value Reference Range Notes Pap w/HPV Reviewed date:08/04/2024 08:50:19 AM Interpretation: Pap normal, HPV negative Performing Lab:Jacey ARZOLA [facility] CLIA ID [id number], [address], [address], [place] [address], Director - Robert Hazel MD Notes/Report: Any Nucleic Acid Amplification testing is performed on the [employer]. Diagnosis: Negative for intraepithelial lesion or malignancy. AP results Recommendation: Follow-up based on current clinical guidelines and/or clinical consideration. Date of Last Pap: Not provided Chargemaster Analyst Specimen Adequacy: Satisfactory for interpretation with endocervical/transformat ion zone component absent, history noted. Results of Last Pap: Not provided Other Gynecological Patient Information: Not provided FINAL AEROSPACE PHYSIOLOGICAL TECHNICIAN CYTOLOGY REPORT LMP: . DIAGNOSIS: Specimen Source: Cervical/Endocervical CPT Codes: 35457 Negative Educational Note: The pap screening test aids in the detection of premalignant and malignant states of the cervix. False positive and negative results may occur. It is not a diagnostic test. If abnormal cells are reported, follow-up based on current clinical guidelines and/or clinical consideration is recommended. Pertinent Clinical History/History of Surgery: Not provided Collection Technique: Not provided Negative for intraepithelial lesion or malignancy. Specimen Type: ThinPrep ICD Codes: Z01.419 Screening note: This specimen has been analyzed by the ThinPrep Imaging System, an interactive computer system which assists the lab in screening of ThinPrep Pap Test slides. Following imaging, the slide was reviewed by a Chargemaster Analyst and/or Pathologist. Brenda Govea HPV High-Risk Negative Negative Reason For Referral Reason Screening Bilateral MMG- U/S if needed Diagnosis 1 Encounter for screen ing for malignant neoplasm of breast (Z12.31) Referral Organization [facility] Referring Provider First Name Belen Referring Provider Last Name Declan Referring Provider Speciality OB - Gynec ology Referral Priority Routine Medications Medication SIG (Take, Route, Frequency, Duration) Notes Start Date End Date Status Rybelsus Active Colestipol HCl 1 GM Tablet 2 tablets Ora lly Once a day Active Social History Tobacco Use: Social History Observation Description Date Details (start date - stop date) Never Smoker NA - NA Sex Assigned At : Social History Observation Description Sex Assigned At Female Social History Drugs/Alcohol: Social Info Question Answer Notes Drugs Have you used drugs other than those for medical reasons in the past 12 months? No Alcohol Screen Did you have a drink containing alcohol in the past year? Yes How often did you have a drink containing alcohol in the past year? Monthly or less (1 point) Points 1 Interpretation Negative Tobacco Use: Social Info Question Answer Notes Tobacco Use/Smoking Are you a nonsmoker Problems Problem Type SNOMED Code ICD Code Onset Dates Problem Status W/U Status Risk Notes Problem Mammography abnormal (166539177) Abnormal finding on breast imaging (R92.8) Active confirmed Problem Abnormal findings on diagnostic imaging of breast (963375481) Abnormal finding on radiological examination of breast (R92.8) Active confirmed Problem Abnormal findings on diagnostic imaging of breast (111459177) Abnormal breast thermography (R92.8) Active confirmed Problem Epimenorrhea (74912605) Epimenorrhea (N92.0) 012 Active confirmed MENORRHAGIA Problem Gynecological examination normal (75671639190457 4) Cervical smear, as part of routine gynecological examination (Z01.419) 016 Active confirmed Annual without abnormal findings Problem Gynecological examination normal (09570567959224 4) Cervical smear, as part of routine gynecological examination (Z01.419) 017 Active confirmed Annual without abnormal findings Problem Gynecological examination normal (56307822825923 4) Cervical smear, as part of routine gynecological examination (Z01.419) 021 Active confirmed Annual without abnormal findings Problem History and physical examination, follow-up (956159457) *Follow-up for Non-Malignant conditions (code also - acquired absence of organ (Z90.-) and identify personal hx malignant neoplasm (Z85.-)) (Z09) 020 Active confirmed Postoperative visit Problem Adult health examination (748407459) Adult general medical exam (Z00.00) 012 Active confirmed ANNUAL EXAM Vital Signs Blood pressure diastolic 70 mm Hg 07/28/2024 Height 65 in 07/28/2024 Blood pressure systolic 122 mm Hg 07/28/2024 Weight 145.6 lbs 07/28/2024 BMI 24.23 kg/m2 07/28/2024 Encounters Encounter Location Date Provider Diagnosis [facility] [address] [facility] [address] [place] [address] 07/28/2024 Justina Connell Bulk Sausage Casing Tier Off exam without abnormal findings Z01.419 and Encounter for screening for malignant neoplasm of breast Z12.31 Assessments Encounter Date Diagnosis (ICD Code) Assessment Notes Treatment Notes Treatment Clinical Notes Section Notes 07/28/2024 Bulk Sausage Casing Tier Off exam without abnormal findings (ICD-10 - Z01.419) Normal annual exam Pap performed BSE encouraged 07/28/2024 Encounter for screening for malignant neoplasm of breast (ICD-10 - Z12.31) Plan Of Treatment Next Appt Details Provider Name:Justina Connell , 08/02/2025 08:00:00 AM, [address], [place], [address], Insurance Providers Payer Name Payer Address Payer Phone Subscriber Number Group Number Insured Name Patient Relationship to Insured Coverage Start Date Coverage End Date [employer] PPO [address] [place] [address] [id number] [place] Henry Self - patient is the insured Medical (General) History Medical History History ICD Code Diabetes Surgical History Surgery Date(Month/Year) Oral surgery Uterine ablation Choleystectomy BTL Hand surgery C/S Hospitalization History Reason Date(Month/Year) C/S
--- OUTSIDE RECORDS SUMMARY | 2025-03-20 07:13 | XMS_ITS | Clinical Summary ---
Author Organization [facility] Address [address] [place] [address] Care Team Providers Care Marketing Strategy Analyst Name Role Phone Austin Cherry MD Primary Care Provider [phone] Social History Tobacco Use Types Packs/Day Years Used Date Smoking Tobacco: Never Assessed Abuse Screen Answer Date Recorded Unsafe at Home or Work/School Not on file Feels Threatened by Someone? Not on file 02/2023 Does Anyone Keep You from Co ntacting Others or Doint Things Outside the Home? Not on file 03/29/2023 Physical Sign of Abuse Present Not on file 1 Housing Stability Answer Date Recorded Current Living Arrangements Not on file 02/2023 Potentially Unsafe Housing Conditions Not on howie e 03/29/2023 Family and Community Support Answer Cosmo e Recorded Help with Day-to-Day Activities Not on file 03/29/2023 Lonely or Isolated Not on file 03/29/2023 Employment Answer Date Recorded Do you want help finding or keeping work or a ava b? Not on file 03/29/2023 Disabilities Answer Date Recorded Concentrating, Remembering, or Making Decisions Difficulty Not on file 03/29/2023 Doing Errands Independently Difficulty Not on fi le 03/29/2023 Education Answer Date Recorded Help with school or training? Not on file Preferred Language Not on file 03/29/2023 Comments Unknown Sex and Gender Information Value Date Recorded Sex Assigned at Not on file Legal Sex Female 1:03 PM EDT Gender Identity Not on file Sexual Orientation Not on file Plan of Treatment Health Maintenance Due Date Last Done Comments Annual Gynecologic Pelvic and Breast Exam 1972 TDAP/TD VACCINES (1 - Tdap) 1991 MAMMOGRAM 2012 COLOGUARD 2017 COLON CANCER SCREENING 5 YEAR SIGMOIDOSCOPY 2017 COLONOSCOPY 2017 COLORECTAL CANCER SCREENING 2017 CT COLONOGRAPHY 2017 FECAL OCCULT BLOOD TEST 2017 FIT Testing (1 year) 2017 ANNUAL PHYSICAL 12/11/2019 HEPATITIS C SCREENING 12/11/2019 Pneumococcal Vaccine 50+ (1 of 1 - PCV) 2022 ZOSTER VACCINE (1 of 2) 2022 INFLUENZA VACCINE 01/19/2025 Insurance [employer] Care Teams Marketing Strategy Analyst Relationship Specialty Start Date End Date Austin Cherry MD [address] [facility] [address] [place] [address] PCP - General Adolescent Medicine 02/24/17
[2025-03-20 07:38] LABS: Hematocrit 40.1 % (37.0-47.0); Hemoglobin 13.6 g/dL (12.2-16.2); Immature Granulocytes % 0.2 %; Mean Corpuscular HGB Conc 33.9 g/dL (31.8-35.4); Mean Corpuscular Hemoglobin 29.6 pg (27.0-31.2); Mean Corpuscular Volume 87.4 fl (81-99); Nucleated Red Blood Cells % 0 %; Platelet Count 233 K/mm3 (142-424); Red Blood Count 4.59 M/mm3 (4.20-5.40); Red Cell Distribution Width-SD 39.9 fL; White Blood Count 5.5 K/mm3 (4.8-10.8)
[2025-03-20 08:03] LABS: Alanine Aminotransferase 31 U/L (12-78); Albumin Level 4.0 g/dl (3.5-5.0); Albumin/Globulin Ratio 1.7 (1.1-1.8); Alkaline Phosphatase 54 U/L (38-126); Anion Gap 10.9 mEq/L (5-15); Aspartate Amino Transferase 22 U/L (14-36); Bilirubin,Total 1.8 mg/dl (0.2-1.3); Blood Urea Nitrogen 10 mg/dl (7-17); Calcium 9.2 mg/dl (8.4-10.2); Carbon Dioxide 27 mmol/L (22.0-30.0); Chloride 103 mmol/L (98-107); Cholesterol 159 mg/dl (140-200); Creatinine,Serum 0.80 mg/dl (0.52-1.04); Estimated Glomerular Filt Rate 75 ml/min (>60); GFR (African American) 91 ML/MIN (>60); Globulin 2.3 g/dL (1.3-3.2); Glucose 119 mg/dl (74-100); HDL Cholesterol 51 mg/dl (40-60); Potassium 3.9 mmoL/L (3.5-5.1); Sodium 137 mmol/L (136-145); Total Protein,Serum 6.3 g/dl (6.3-8.2); Triglycerides 86 mg/dl (30-150)
[2025-03-20 08:52] LABS: Vitamin B12 257 pg/mL (239-931)
[2025-03-20 11:52] LABS: Hemoglobin A1C 5.9 % (4.0-6.0)
[2025-03-21 11:19] LABS: FSH 17.2 mIU/mL (.)
== END 2025-03-20 23:59 | disposition home or self-care (01) ==
LOC: LAB 07:11
PROVIDERS: PCP Nurse Practitioner Family; Visit Provider Internal Medicine Adolescent Medicine
DX: E53.8 Deficiency of other specified B group vitamins (principal); E11.29 Type 2 diabetes mellitus with other diabetic kidney complication; E78.5 Hyperlipidemia, unspecified; N91.2 Amenorrhea, unspecified
CPT/HCPCS: 36415; 80053; 80061; 82607; 83001; 83036; 85025

== ENCOUNTER 2025-04-18 09:59 | Outpatient (CLI) | payer BC, SELFPAY ==
--- OUTSIDE RECORDS SUMMARY | 2024-05-17 04:00 | XMS_ITS ---
Author Organization [facility] Address [address] [facility] [address] [place] [address] Care Team Providers Care Consumer Experience Consultant Name Role Phone BeckiGuillermoJustina Jolynn [phone] REASON FOR VISIT Annual Social History Sex Assigned At : Social History Observation Description Sex Assigned At Female Encounters Encounter Location Date Provider Diagnosis [facility] [address] [facility] [address] [place] [address] 05/17/2024 Justina Connell Plan Of Treatment Next Appt Details Provider Name:Justina Connell , 08/02/2025 08:00:00 AM, [address] [facility] [address], [place], [address], Progress Notes * [place] HENRY LDOB:[birth year] (54 yo F)Acc No.[id number]:05/17/2024 Progress Note Patient: Anushka Penabrandyn Dietz Provider: Joe Connell APRN :1970 A ge:53 Y S ex:Female Date:05/17/2024 Address: [address] [id number] Subjective: * Chief Complaints: * A nnual * Electronic signature of Juan Connell APRN on 04/18/2025 at 10:21 AM EDT Sign off status: Pending Visit Status: R /S (Rescheduled) * Provider: Joe Connell APRN Date: 1 07/17/2023 Generated for Tristian baxter/Tamiko/Laurie on: 10:21 AM EDT
--- OUTSIDE RECORDS SUMMARY | 2024-05-25 04:30 | XMS_ITS ---
Author Organization [facility] Address [address] [facility] [address] [place] [address] Care Team Providers Care Switchboard And Control Room Operator Name Role Phone BeckiGuillermoJustina Jolynn [phone] REASON FOR VISIT Annual Social History Sex Assigned At : Social History Observation Description Sex Assigned At Female Encounters Encounter Location Date Provider Diagnosis [facility] [address] [facility] [address] [place] [address] 05/25/2024 Justina Connell Plan Of Treatment Next Appt Details Provider Name:Justina Connell , 08/02/2025 08:00:00 AM, [address] [facility] [address], [place], [address], Progress Notes * [place] HENRY LDOB:[birth year] (54 yo F)Acc No.[id number]:05/25/2024 Progress Note Patient: Anushka Penabrandyn Dietz Provider: Joe Connell APRN :1970 A ge:53 Y S ex:Female Date:05/25/2024 Address: [address] [place] Subjective: * Chief Complaints: * A nnual * Electronic signature of Juan Connell APRN on 04/18/2025 at 10:21 AM EDT Sign off status: Pending Visit Status: R /S (Rescheduled) * Provider: Joe Connell APRN Date: 1 07/26/2023 Generated for Tristian baxter/Tamiko/Laurie on: 1 10:21 AM EDT
--- OUTSIDE RECORDS SUMMARY | 2024-06-15 05:15 | XMS_ITS ---
Author Organization [facility] Address [address] [place] [address] Care Team Providers Care Interlibrary Loan Specialist Name Role Phone BeckiGuillermo hernandezley Jolynn [phone] REASON FOR VISIT Annual Social History Sex Assigned At : Social History Observation Description Sex Assigned At Female Encounters Encounter Location Date Provider Diagnosis [facility] [address] [facility] [address] [place] [address] 06/15/2024 Justina Connell Plan Of Treatment Next Appt Details Provider Name:Justina Connell , 08/02/2025 08:00:00 AM, [address] [facility], [address], [place], [address], Progress Notes * Virginia HENRY LDOB:[birth year] (54 yo F)Acc No.[id number]:06/15/2024 Progress Note Patient: Anushka Penabrandyn Dietz Provider: Joe Connell APRN :1970 A ge:53 Y S ex:Female Date:06/15/2024 Address: [address] [place] Subjective: * Chief Complaints: * A nnual * Electronic signature of Juan Connell APRN on 04/18/2025 at 10:21 AM EDT Sign off status: Pending Visit Status: R /S (Rescheduled) * Provider: Joe Connell APRN Date: 1 08/16/2023 Generated for Tristian baxter/Tamiko/Laurie on: 1 10:21 AM EDT
--- NOTE | 2025-04-18 09:59 | XR_ITS ---
FINAL REPORT CLINICAL HISTORY: right elbow pain FINDINGS: 3 views of the right elbow were obtained. There is no acute fracture or dislocation. There is an ossific density along the medial epicondyle measuring 1 cm likely related to prior trauma. The joint spaces are intact. There is not soft tissue abnormality. IMPRESSION: No acute fracture Reviewed, Interpreted and Dictated by Titi Honeycutt MD Transcribed by Maria Esther Smith Authenticated and . [facility]
--- OUTSIDE RECORDS SUMMARY | 2025-04-18 10:21 | XMS_ITS | Clinical Summary ---
Author Organization [facility] Address [address] [place] [address] Care Team Providers Care Intelligence Consultant Name Role Phone Austin Cherry MD Primary Care Provider [phone] Social History Tobacco Use Types Packs/Day Years [...] of 2) 2022 INFLUENZA VACCINE 01/19/2025 Insurance [employer] Care Teams Intelligence Consultant Relationship Specialty Start Date End Date Austin Cherry MD [address] [facility] [address] [place] [address] PCP - General Adolescent Medicine 02/24/17
--- OUTSIDE RECORDS SUMMARY | 2025-04-18 10:21 | XMS_ITS | Patient Health Record ---
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 Role Phone Justina Connell Unavailable [phone] Allergies Allergen (clinical drug ingredient) Drug/Non Drug Allergy documented on EMR Reaction Allergy Type Onset Date Status sulfamethoxazole / trimethoprim SULFAMETHOXAZOLE-T RIMETHOPRIM Unspecified Drug Allergy 02/24/2017 Active Results Component Value Reference Range Notes Pap w/HPV Reviewed date:08/04/2024 08:50:19 AM Interpretation: Pap normal, HPV negative Performing Lab:Jacey ARZOLA [facility] CLIA ID [id number], [address], [address], [place] [address], Director - Robert Hazel MD Notes/Report: Any Nucleic Acid Amplification testing is performed on the datatracker [place]. Diagnosis: Negative for intraepithelial lesion or malignancy. AP results Recommendation: Follow-up based on current clinical guidelines and/or clinical consideration. Date of Last Pap: Not provided Form Stripper Specimen Adequacy: Satisfactory for interpretation with endocervical/transformat ion zone component absent, history noted. 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 DIAGNOSIS: Specimen Source: Cervical/Endocervical CPT Codes: 31142 Negative Educational Note: The pap screening test [...] This specimen has been analyzed by the [employer] System, an interactive computer system which assists the lab in screening of ThinPrep Pap Test slides. Following imaging, the slide was reviewed by a Form Stripper and/or Pathologist. Brenda Govea HPV High-Risk Negative Negative Reason For Referral Reason Screening Bilateral MMG- U/S if needed Diagnosis 1 Encounter for screen ing for malignant neoplasm of breast (Z12.31) Referral Organization [facility] Referring Provider First Name Belen Referring [...] Problem Status W/U Status Risk Notes Problem Adult health examination (106032182) Adult general medical exam (Z00.00) 012 Active confirmed ANNUAL EXAM Problem History and physical examination, follow-up (891290382) *Follow-up for Non-Malignant conditions (code also - acquired absence of organ (Z90.-) and identify personal hx malignant neoplasm (Z85.-)) (Z09) 020 Active confirmed Postoperative visit Problem Gynecological examination normal (70476390033265 4) Cervical smear, as part of routine gynecological examination (Z01.419) 021 Active confirmed Annual without abnormal findings Problem Gynecological examination normal (53960070705412 4) Cervical smear, as part of routine gynecological examination (Z01.419) 017 Active confirmed Annual without abnormal findings Problem Gynecological examination normal (99610349447013 4) Cervical smear, as part of routine gynecological examination (Z01.419) 016 Active confirmed Annual without abnormal findings Problem Epimenorrhea (89827341) Epimenorrhea (N92.0) 012 Active confirmed MENORRHAGIA Problem Abnormal findings on diagnostic imaging of breast (112486947) Abnormal breast thermography (R92.8) Active confirmed Problem Abnormal findings on diagnostic imaging of breast (151056724) Abnormal finding on radiological examination of breast (R92.8) Active confirmed Problem Mammography abnormal (252870664) Abnormal finding on breast imaging (R92.8) Active confirmed Vital Signs Blood pressure diastolic 70 mm Hg 07/28/2024 Height 65 in 07/28/2024 Blood pressure systolic 122 mm Hg 07/28/2024 Weight 145.6 lbs 07/28/2024 BMI 24.23 kg/m2 07/28/2024 Encounters Encounter Location Date Provider Diagnosis [facility] [address] [place] [address] 07/28/2024 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 Connell 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 and Encounter for screening for malignant neoplasm of breast Z12.31 Assessments Encounter Date Diagnosis (ICD Code) Assessment Notes Treatment Notes Treatment Clinical Notes Section Notes 07/28/2024 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 (ICD-10 - Z01.419) Normal annual exam Pap performed BSE encouraged 07/28/2024 Encounter for screening for malignant neoplasm of breast (ICD-10 - Z12.31) Plan Of Treatment Next Appt Details Provider Name:Justina Connell , 08/02/2025 08:00:00 AM, [address], [place], [address], Insurance Providers Payer Name Payer Address Payer Phone Subscriber Number Group Number Insured Name Patient Relationship to Insured Coverage Start Date Coverage End Date [place] [employer] [address] [place] [address] [id number] Virginia Henry Self - patient is the insured Medical (General) History Medical History History ICD Code Diabetes Surgical History Surgery Date(Month/Year) C/S Hand surgery BTL Choleystectomy Uterine ablation Oral surgery Hospitalization History Reason Date(Month/Year) C/S
== END 2025-04-18 23:59 | disposition home or self-care (01) ==
LOC: RAD 09:59
PROVIDERS: PCP Nurse Practitioner Family; Visit Provider Physician Assistant
DX: M25.521 Pain in right elbow (principal)
CPT/HCPCS: 73080